=== PATIENT | male | born 1930 | race Two or more races ===

== ENCOUNTER 2016-04-15 15:35 | Inpatient (IN) | payer MEDICARE, OTHER ==
[2016-04-15] VITALS (15 sets, daily range): BP systolic 126–181; BP diastolic 50–82
[~2016-04-15] VITALS: Ht 177.8 cm; Wt 67.1 kg
[2016-04-15] MEDS ORDERED: NITROGLYCERIN 0.4 MG/TAB BOTTLE ONE (15:50)
[2016-04-15] MEDS ORDERED: ASPIRIN 325 MG TABLET ONE (15:50)
[2016-04-15] MEDS ORDERED: FUROSEMIDE 40 MG/4 ML VIAL ONE (15:50)
[2016-04-15] MEDS ORDERED: NTG 50 MG/D5W250 ML BOTTL 250 ML IV ONE ×2 (15:51→16:00)
[2016-04-15] MEDS ORDERED: IV SET PRIMARY PUMP SET 1 EA INFUS.SET MC ONE ×3 (15:51→19:02)
[2016-04-15] MEDS ORDERED: NITROGLYCERIN 0.4 MG/TAB BOTTLE SL ONE (16:00)
[2016-04-15] MEDS ORDERED: FUROSEMIDE 40 MG/4 ML VIAL IV ONE (16:00)
[2016-04-15] MEDS ORDERED: ASPIRIN 325 MG TABLET PO ONE (16:00)
[2016-04-15 16:23] LABS: BASOPHILS # (AUTO) 0.1 /CMM (0.0-0.2); BASOPHILS % (AUTO) 0.6 % (0.0-2.0); DIFF TOTAL % 100 %; EOSINOPHILS # (AUTO) 0.2 /CMM (0.0-0.7); EOSINOPHILS % (AUTO) 1.4 % (0.0-6.0); HEMATOCRIT 33 % (39-51); HEMOGLOBIN 10.7 g/dL (13.5-17.5); LYMPHOCYTES # (AUTO) 0.7 /CMM (0.8-4.8); LYMPHOCYTES % (AUTO) 4.5 % (20.0-44.0); MEAN CORPUSCULAR HEMOGLOBIN 28 PG (26.0-33.0); MEAN CORPUSCULAR HGB CONC 33 g/dl (31.0-36.0); MEAN CORPUSCULAR VOLUME 84 fL (80-96); MONOCYTES % (AUTO) 6.7 % (2.0-12.0); NEUTROPHILS # (AUTO) 13.1 /CMM (1.8-8.9); NEUTROPHILS % (AUTO) 86.8 % (43.0-81.0); PLATELET COUNT (AUTO) 258 /CMM (150-450); RED BLOOD CELL COUNT(AUTO) 3.89 MIL/uL (4.5-6.0); WHITE BLOOD COUNT (AUTO) 15.1 K/uL (4.3-11.0)
[2016-04-15 16:43] LABS: ANION GAP 15 (5-14); CALCIUM, SERUM 8.7 mg/dL (8.5-10.1); CARBON DIOXIDE 23 mmol/L (21-32); CHLORIDE 106 mmol/L (98-107); CREATININE 2.4 mg/dL (0.6-1.3); GLUCOSE 245 mg/dL (74-106); POTASSIUM 5.9 mmol/L (3.5-5.1); SODIUM SERUM 138 mmol/L (136-145); UREA NITROGEN, BLOOD 38 mg/dL (7-18)
[2016-04-15 16:45] LABS: INR 1.08 (0.87-1.13); PROTHROMBIN TIME 11.3 SECS (9.5-12.7)
[2016-04-15 16:50] LABS: TROPONIN I < 0.017 ng/mL (0.00-0.056)
[2016-04-15 16:55] LABS: ALANINE AMINOTRANSFERASE 21 U/L (12-78); ALBUMIN 3.5 g/dL (3.4-5.0); ASPARTATE AMINOTRANSFERASE 24 U/L (15-37); BILIRUBIN,DIRECT 0.5 mg/dL (0.0-0.2); BILIRUBIN,TOTAL 1.4 mg/dL (0.2-1.0); INDIRECT BILIRUBIN 0.9 mg/dL (0.0-1.1); TOTAL PROTEIN, SERUM 7.7 g/dL (6.4-8.2)
[2016-04-15 17:17] LABS: ABG BASE EXCESS -5.3 mmol/L; ABG HCO3 20.2 mmol/L; ABG PCO2 39.1 mmHg (35.0-45.0); ABG PH 7.331 (7.350-7.450); ABG PO2 77.5 mmHg (75.0-100.0); ALLEN TEST Pass; AaDO2 162.7 mmHg; O2Hb 93.6 % (94.0-97.0)
[2016-04-15] MEDS: CEFEPIME 1 GM in IV D5W 50 ML IV ONE ×2 (17:29→17:30)
[2016-04-15] MEDS ORDERED: VANCOMYCIN 1 GM in IV D5W 250 ML IV ONE (17:30)
[2016-04-15] MEDS ORDERED: Z GUARD REMEDY 2 OZ OINT TP PRN (18:30)
[2016-04-15] MEDS ORDERED: ALBUTEROL FS 2.5 MG/0.5 ML VIAL.NEB NEB PRN (18:30)
[2016-04-15] MEDS ORDERED: IPRATROPIUM NEB FS 0.5 MG/2.5 ML AMPUL.NEB NEB PRN (18:30)
[2016-04-15] MEDS ORDERED: ONDANSETRON HCL/PF 4 MG/2 ML VIAL IVP PRN (18:30)
[2016-04-15] MEDS ORDERED: MORPHINE SULFATE INJ 2 MG/ML DISP.SYRIN IV PRN (18:30)
[2016-04-15] MEDS ORDERED: ACETAMINOPHEN 325 MG TABLET PO PRN (18:30)
[2016-04-15] MEDS ORDERED: IV 1/2NS 1000 ML 1,000 ML IV PRN (18:30)
[2016-04-15] MEDS ORDERED: FEE PK DOSING 1 MIN EA MC ONE (18:47)
[2016-04-15] MEDS ORDERED: SODIUM POLYSTYRENE SULFONATE 15 G/60 ML BOTTLE PO ONE (19:00)
[2016-04-15] MEDS: ENOXAPARIN SODIUM 30 MG/0.3 ML DISP.SYRIN SQ SCH (19:14)
[2016-04-16] VITALS (76 sets, daily range): BP systolic 122–199; BP diastolic 42–75
[2016-04-16] MEDS: PIPERACILLIN /TAZOBACTAM 2.25 G in IV D5W 50 ML IV SCH ×4 (00:32→17:39)
[2016-04-16] MEDS ORDERED: NTG 50 MG/D5W250 ML BOTTL 250 ML IV PRN (08:00)
[2016-04-16 08:29] LABS: BASOPHILS % (AUTO) 0.4 % (0.0-2.0); DIFF TOTAL % 100 %; EOSINOPHILS # (AUTO) 0.2 /CMM (0.0-0.7); HEMATOCRIT 30 % (39-51); HEMOGLOBIN 9.7 g/dL (13.5-17.5); LYMPHOCYTES # (AUTO) 0.8 /CMM (0.8-4.8); LYMPHOCYTES % (AUTO) 8.4 % (20.0-44.0); MEAN CORPUSCULAR HEMOGLOBIN 27 PG (26.0-33.0); MEAN CORPUSCULAR HGB CONC 33 g/dl (31.0-36.0); MEAN CORPUSCULAR VOLUME 84 fL (80-96); MONOCYTES # (AUTO) 0.8 /CMM (0.1-1.30); MONOCYTES % (AUTO) 8.2 % (2.0-12.0); NEUTROPHILS # (AUTO) 7.6 /CMM (1.8-8.9); PLATELET COUNT (AUTO) 197 /CMM (150-450); RED BLOOD CELL COUNT(AUTO) 3.53 MIL/uL (4.5-6.0); WHITE BLOOD COUNT (AUTO) 9.3 K/uL (4.3-11.0)
[2016-04-16 08:55] LABS: ALBUMIN 3.2 g/dL (3.4-5.0); BILIRUBIN,TOTAL 1.5 mg/dL (0.2-1.0); CALCIUM, SERUM 8.4 mg/dL (8.5-10.1); CREATININE 2.4 mg/dL (0.6-1.3); PHOSPHORUS 4.1 mg/dL (2.5-4.9); POTASSIUM 4.6 mmol/L (3.5-5.1)
[2016-04-16 08:56] LABS: THYROID STIMULATING HORMONE 0.748 uIU/mL (0.358-3.74)
[2016-04-16] MEDS ORDERED: PANTOPRAZOLE 40 MG VIAL IV SCH (09:00)
[2016-04-16] MEDS ORDERED: BUMETANIDE INJ 8 MG in IV NS 0.9% 48 ML IV ONE (11:00)
[2016-04-16] MEDS ORDERED: DEXTROSE 50%-WATER 50 ML DISP.SYRIN IV PRN (15:00)
[2016-04-16] MEDS ORDERED: HYDR100T27 PO (16:32)
[2016-04-16] MEDS ORDERED: CLON1PAT2 TD (16:32)
[2016-04-16] MEDS ORDERED: METO100T3 PO (16:32)
[2016-04-16] MEDS ORDERED: AMLO1TAB65 PO (16:32)
[2016-04-16] MEDS ORDERED: SITA1TAB2 PO (16:32)
[2016-04-16] MEDS ORDERED: ESOM40CA PO (16:32)
[2016-04-16] MEDS ORDERED: INSU100V7 SQ (16:32)
[2016-04-16] MEDS ORDERED: FLUT1DIS5 INH (16:32)
[2016-04-16] MEDS ORDERED: RIVA1PAT3 TP (16:32)
[2016-04-16] MEDS ORDERED: RIVA1PAT2 TD (16:32)
[2016-04-16] MEDS: LACTOBACILLUS RHAMNOSUS GG 1 EACH CAP.SPRINK PO SCH (17:38)
[2016-04-16] MEDS: BLOOD SUGAR DIAGNOSTIC 1 EACH STRIP IN SCH ×2 (17:39→22:00)
[2016-04-16] MEDS: hydrALAZINE HCL 25 MG TABLET PO SCH (17:39)
[2016-04-16] MEDS: INSULIN REGULAR, HUMAN 100 UNIT/ML 3 ML VIAL SQ PRN ×2 (17:43→23:32)
[2016-04-16] MEDS: ENOXAPARIN SODIUM 30 MG/0.3 ML DISP.SYRIN SQ SCH (21:29)
[2016-04-17] VITALS (27 sets, daily range): BP systolic 101–158; BP diastolic 40–89
[2016-04-17] MEDS: PIPERACILLIN /TAZOBACTAM 2.25 G in IV D5W 50 ML IV SCH ×3 (00:34→13:28)
[2016-04-17] MEDS: hydrALAZINE HCL 25 MG TABLET PO SCH ×2 (00:35→06:19)
[2016-04-17 04:47] LABS: BASOPHILS # (AUTO) 0.1 /CMM (0.0-0.2); BASOPHILS % (AUTO) 0.7 % (0.0-2.0); DIFF TOTAL % 100 %; EOSINOPHILS # (AUTO) 0.5 /CMM (0.0-0.7); EOSINOPHILS % (AUTO) 6.6 % (0.0-6.0); HEMATOCRIT 32 % (39-51); HEMOGLOBIN 10.5 g/dL (13.5-17.5); LYMPHOCYTES # (AUTO) 0.9 /CMM (0.8-4.8); LYMPHOCYTES % (AUTO) 11.8 % (20.0-44.0); MEAN CORPUSCULAR HEMOGLOBIN 27 PG (26.0-33.0); MEAN CORPUSCULAR HGB CONC 33 g/dl (31.0-36.0); MEAN CORPUSCULAR VOLUME 83 fL (80-96); MONOCYTES # (AUTO) 0.7 /CMM (0.1-1.30); MONOCYTES % (AUTO) 9.8 % (2.0-12.0); NEUTROPHILS # (AUTO) 5.4 /CMM (1.8-8.9); NEUTROPHILS % (AUTO) 71.1 % (43.0-81.0); PLATELET COUNT (AUTO) 195 /CMM (150-450); RED BLOOD CELL COUNT(AUTO) 3.87 MIL/uL (4.5-6.0); WHITE BLOOD COUNT (AUTO) 7.6 K/uL (4.3-11.0)
[2016-04-17 04:54] LABS: ALANINE AMINOTRANSFERASE 16 U/L (12-78); ALBUMIN 3.1 g/dL (3.4-5.0); ANION GAP 15 (5-14); ASPARTATE AMINOTRANSFERASE 11 U/L (15-37); BILIRUBIN,TOTAL 1.1 mg/dL (0.2-1.0); CALCIUM, SERUM 8.5 mg/dL (8.5-10.1); CARBON DIOXIDE 28 mmol/L (21-32); CHLORIDE 102 mmol/L (98-107); CREATININE 2.6 mg/dL (0.6-1.3); GLUCOSE 185 mg/dL (74-106); PHOSPHORUS 4.7 mg/dL (2.5-4.9); SODIUM SERUM 141 mmol/L (136-145); UREA NITROGEN, BLOOD 34 mg/dL (7-18)
[2016-04-17 04:57] LABS: TROPONIN I < 0.017 ng/mL (0.00-0.056)
[2016-04-17] MEDS ORDERED: VANCOMYCIN 1 GM in IV D5W 250 ML IV SCH (06:00)
[2016-04-17] MEDS: BLOOD SUGAR DIAGNOSTIC 1 EACH STRIP IN SCH ×4 (08:07→21:06)
[2016-04-17] MEDS: INSULIN REGULAR, HUMAN 100 UNIT/ML 3 ML VIAL SQ PRN ×4 (08:07→21:18)
[2016-04-17] MEDS ORDERED: hydrALAZINE HCL 50 MG TABLET PO SCH (08:11)
[2016-04-17] MEDS: NITROGLYCERIN 30 GM TUBE TP SCH ×2 (09:13→21:00)
[2016-04-17] MEDS: LACTOBACILLUS RHAMNOSUS GG 1 EACH CAP.SPRINK PO SCH ×2 (09:13→18:20)
[2016-04-17] MEDS: METOLAZONE 2.5 MG TABLET PO SCH (11:02)
[2016-04-17] MEDS: Magnesium 1GM/D5W 100ML PREMIX 100 ML IV SCH ×2 (12:56→13:28)
[2016-04-17] MEDS: hydrALAZINE HCL 50 MG TABLET PO SCH ×2 (14:25→18:20)
[2016-04-17] MEDS: LEVOFLOXACIN (250MG) 250 MG TABLET PO SCH (18:20)
[2016-04-17] MEDS: ENOXAPARIN SODIUM 30 MG/0.3 ML DISP.SYRIN SQ SCH (21:19)
[2016-04-18] VITALS (7 sets, daily range): BP systolic 117–137; BP diastolic 57–80
[2016-04-18] MEDS: BLOOD SUGAR DIAGNOSTIC 1 EACH STRIP IN SCH ×4 (07:08→21:40)
[2016-04-18 07:28] LABS: CALCIUM, SERUM 8.1 mg/dL (8.5-10.1); CREATININE 3.7 mg/dL (0.6-1.3); POTASSIUM 4.3 mmol/L (3.5-5.1)
[2016-04-18] MEDS: LACTOBACILLUS RHAMNOSUS GG 1 EACH CAP.SPRINK PO SCH ×2 (08:29→17:26)
[2016-04-18] MEDS: METOLAZONE 2.5 MG TABLET PO SCH (08:29)
[2016-04-18] MEDS: hydrALAZINE HCL 50 MG TABLET PO SCH ×3 (08:29→17:49)
[2016-04-18] MEDS: NITROGLYCERIN 30 GM TUBE TP SCH ×2 (08:39→20:54)
[2016-04-18] MEDS: INSULIN REGULAR, HUMAN 100 UNIT/ML 3 ML VIAL SQ PRN ×3 (12:35→21:43)
[2016-04-18] MEDS: LEVOFLOXACIN (250MG) 250 MG TABLET PO SCH (17:26)
[2016-04-18] MEDS: ENOXAPARIN SODIUM 30 MG/0.3 ML DISP.SYRIN SQ SCH (20:55)
[2016-04-19] MEDS ORDERED: SECONDARY IV SET 1 EA INFUS.SET MC ONE (00:02)
[2016-04-19] MEDS: BLOOD SUGAR DIAGNOSTIC 1 EACH STRIP IN SCH ×2 (06:26→12:18)
[2016-04-19] MEDS: INSULIN REGULAR, HUMAN 100 UNIT/ML 3 ML VIAL SQ PRN ×2 (06:31→12:19)
[2016-04-19 08:00] VITALS: BP 136/59
[2016-04-19] MEDS: LACTOBACILLUS RHAMNOSUS GG 1 EACH CAP.SPRINK PO SCH (08:57)
[2016-04-19] MEDS: hydrALAZINE HCL 50 MG TABLET PO SCH ×2 (08:58→12:47)
[2016-04-19] MEDS: METOLAZONE 2.5 MG TABLET PO SCH (08:58)
[2016-04-19] MEDS ORDERED: BUMETANIDE INJ 0.25 MG/ML VIAL IV SCH (09:00)
[2016-04-19 09:05] LABS: BASOPHILS % (AUTO) 0.6 % (0.0-2.0); DIFF TOTAL % 100 %; EOSINOPHILS # (AUTO) 0.5 /CMM (0.0-0.7); EOSINOPHILS % (AUTO) 6.7 % (0.0-6.0); HEMATOCRIT 31 % (39-51); HEMOGLOBIN 10.1 g/dL (13.5-17.5); LYMPHOCYTES # (AUTO) 1.1 /CMM (0.8-4.8); LYMPHOCYTES % (AUTO) 15.4 % (20.0-44.0); MEAN CORPUSCULAR HEMOGLOBIN 27 PG (26.0-33.0); MEAN CORPUSCULAR HGB CONC 33 g/dl (31.0-36.0); MEAN CORPUSCULAR VOLUME 83 fL (80-96); MONOCYTES # (AUTO) 0.9 /CMM (0.1-1.30); MONOCYTES % (AUTO) 11.9 % (2.0-12.0); NEUTROPHILS # (AUTO) 4.8 /CMM (1.8-8.9); NEUTROPHILS % (AUTO) 65.4 % (43.0-81.0); PLATELET COUNT (AUTO) 196 /CMM (150-450); RED BLOOD CELL COUNT(AUTO) 3.73 MIL/uL (4.5-6.0); WHITE BLOOD COUNT (AUTO) 7.3 K/uL (4.3-11.0)
[2016-04-19] MEDS: NITROGLYCERIN 30 GM TUBE TP SCH (09:06)
[2016-04-19 09:17] LABS: CALCIUM, SERUM 8.3 mg/dL (8.5-10.1); CREATININE 3.8 mg/dL (0.6-1.3); PHOSPHORUS 5.3 mg/dL (2.5-4.9); POTASSIUM 4.6 mmol/L (3.5-5.1)
[2016-04-19 12:47] VITALS: BP 142/56
== END 2016-04-19 14:30 | disposition home or self-care (01) | DRG 291 ==
LOC: ER 15:36 → ICU 17:38 → TELE 04-17 11:30 → MED 04-18 11:11
DX: I13.0 Hypertensive heart and chronic kidney disease with heart failure and stage 1 through stage 4 chronic kidney disease, or unspecified chronic kidney disease (principal); J96.01 Acute respiratory failure with hypoxia; I50.33 Acute on chronic diastolic (congestive) heart failure; N17.0 Acute kidney failure with tubular necrosis; J15.9 Unspecified bacterial pneumonia; J44.0 Chronic obstructive pulmonary disease with (acute) lower respiratory infection; I16.1 Hypertensive emergency; E78.5 Hyperlipidemia, unspecified; E87.5 Hyperkalemia; I35.0 Nonrheumatic aortic (valve) stenosis; D63.8 Anemia in other chronic diseases classified elsewhere; E11.22 Type 2 diabetes mellitus with diabetic chronic kidney disease; I25.10 Atherosclerotic heart disease of native coronary artery without angina pectoris; J98.4 Other disorders of lung; Z99.2 Dependence on renal dialysis
CPT/HCPCS: 36415; 36600; 71010-TC; 80048-TC; 80053-TC; 80061-TC; 80076-TC; 82306; 82728-TC; 82962-TC; 83540-TC; 83605-TC; 83735-TC; 83880; 84100-TC; 84439-TC; 84443-TC; 84484-TC; 85025-TC; 85730-TC; 87040-TC; 87081-TC; 93307-TC; 94799-TC; 97001-TC; A4216; A4349; A4606; C9113; J0692; J1650; J1815; J1940; J2270; J2543; J3370; J3475; J3490; J7060; Z7610

== ENCOUNTER 2016-08-14 18:51 | Inpatient (IN) | payer MEDICARE, OTHER ==
[~2016-08-14] VITALS: Ht 172.7 cm; Wt 63.5 kg
[~2016-08-14 18:51] MED LIST: AMLO1TAB65 PO; CLON1PAT2 TD; ESOM40CA PO; FLUT1DIS5 INH; HYDR100T27 PO; INSU100V7 SQ; METO100T3 PO; RIVA1PAT2 TD; RIVA1PAT3 TP; SITA1TAB2 PO
--- NOTE | 2016-08-14 18:57 | NUR ---
PT [id number] FROM HOME: SOB, HYPOXIA. BS IN FIELD 192. PLACED ON MONITOR. VSS. AWAITING MD ORDER
--- NOTE | 2016-08-14 19:00 | NUR ---
RT WRIST #20 IV ACCESS. RIGGING SLINGER . BLOOD SAMPLE COLLECTED SENT TO LAB
[2016-08-14] MEDS ORDERED: CLON1PAT2 TD (19:20)
[2016-08-14] MEDS ORDERED: PRAM0.253 PO (19:20)
[2016-08-14] MEDS ORDERED: METO5TAB7 PO (19:20)
[2016-08-14] MEDS ORDERED: ALLO100T PO (19:20)
[2016-08-14] MEDS ORDERED: ASPI81TA2 PO (19:20)
[2016-08-14] MEDS ORDERED: NIFE20CA PO (19:20)
[2016-08-14] MEDS ORDERED: ERGO50003 PO (19:20)
[2016-08-14] MEDS ORDERED: METO5TAB87 PO (19:20)
[2016-08-14] MEDS ORDERED: AMLO10TA2 PO (19:20)
[2016-08-14] MEDS ORDERED: CYAN10006 IM (19:20)
[2016-08-14] MEDS ORDERED: FOLI1TAB16 PO (19:20)
[2016-08-14] MEDS ORDERED: LINA145C PO (19:20)
[2016-08-14] MEDS ORDERED: BUME1TAB4 PO (19:20)
--- NOTE | 2016-08-14 19:24 | NUR ---
GAVE REPORT TO DANDRE FOR LARISSA
[2016-08-14 19:29] LABS: BASOPHILS # (AUTO) 0.1 /CMM (0.0-0.2); BASOPHILS % (AUTO) 0.9 % (0.0-2.0); EOSINOPHILS # (AUTO) 0.5 /CMM (0.0-0.7); EOSINOPHILS % (AUTO) 4.6 % (0.0-6.0); HEMATOCRIT 33 % (39-51); HEMOGLOBIN 10.8 g/dL (13.5-17.5); LYMPHOCYTES # (AUTO) 1.3 /CMM (0.8-4.8); LYMPHOCYTES % (AUTO) 12.4 % (20.0-44.0); MEAN CORPUSCULAR HEMOGLOBIN 27 PG (26.0-33.0); MEAN CORPUSCULAR HGB CONC 33 g/dl (31.0-36.0); MEAN CORPUSCULAR VOLUME 83 fL (80-96); MONOCYTES % (AUTO) 9.6 % (2.0-12.0); NEUTROPHILS # (AUTO) 7.8 /CMM (1.8-8.9); NEUTROPHILS % (AUTO) 72.5 % (43.0-81.0); PLATELET COUNT (AUTO) 226 /CMM (150-450); RDW COEFFICIENT OF VARIATION 16.4 (11.5-15.0); RED BLOOD CELL COUNT(AUTO) 3.94 MIL/uL (4.5-6.0); WHITE BLOOD COUNT (AUTO) 10.7 K/uL (4.3-11.0)
--- NOTE | 2016-08-14 19:32 | NUR ---
TRANSFORMER SHOP SUPERVISOR AT BEDSIDE
[2016-08-14 19:40] LABS: CALCIUM, SERUM 8.5 mg/dL (8.5-10.1); CREATININE 2.8 mg/dL (0.6-1.3); POTASSIUM 4.5 mmol/L (3.5-5.1)
[2016-08-14 19:44] LABS: INR 1.07 (0.87-1.13); PROTHROMBIN TIME 11.1 SECS (9.5-12.7)
[2016-08-14] MEDS ORDERED: PROPOFOL 100 ML IV ONE (19:44)
[2016-08-14] MEDS ORDERED: IV SET PRIMARY PUMP SET 1 EA INFUS.SET MC ONE (19:44)
[2016-08-14 19:46] LABS: ALBUMIN 3.6 g/dL (3.4-5.0); BILIRUBIN,DIRECT 0.1 mg/dL (0.0-0.2); BILIRUBIN,TOTAL 0.6 mg/dL (0.2-1.0); TOTAL PROTEIN, SERUM 7.9 g/dL (6.4-8.2)
[2016-08-14 19:48] LABS: TROPONIN I 0.02 ng/mL (0.00-0.056)
--- NOTE | 2016-08-14 21:23 | NUR ---
CALLED NURSING SUP. FOR TELE BED
[2016-08-14] MEDS ORDERED: MAGNESIUM HYDROXIDE 30 ML UDC PO PRN (22:00)
[2016-08-14] MEDS ORDERED: HYDROCODONE/APAP 5/325MG 1 EACH TABLET PO PRN (22:00)
[2016-08-14] MEDS ORDERED: ZOLPIDEM TARTRATE 5 MG TABLET PO PRN (22:00)
[2016-08-14] MEDS ORDERED: ONDANSETRON HCL/PF 4 MG/2 ML VIAL IVP PRN (22:00)
[2016-08-14] MEDS ORDERED: ACETAMINOPHEN 325 MG TABLET PO PRN (22:00)
[2016-08-14] MEDS ORDERED: MAG HYDROX/AL HYDROX/SIMETH 30 ML UDC PO PRN (22:00)
--- NOTE | 2016-08-14 22:00 | NUR ---
PT TAKEN OFF NRB MASK AND PLACED ON NC AT 4L. PT SAT 90-91%. PT IS MOUTH BREATHING. PT PLACED ON SIMPLE MASK AT 8L AND IS SATURATING AT 97%.
--- NOTE | 2016-08-14 22:01 | NUR ---
CALLING REPOR TO TELE NURSE.
[2016-08-14 22:20] VITALS: BP 165/82
--- NOTE | 2016-08-14 22:20 | NUR ---
SECURITY SOFTWARE ENGINEER NOTES: RECEIVED PATIENT VIA KACIE, AODestinee AZERI SPEAKING. , ON O2 AT 8 LPM VIA SIMPLE FACE MASK, APPEARS TO HAVE SOB, BREATHING AT RATE OF 28-32 PER MINUTES, WHEEZING AUSCULTATED UPON EXPIRATION, ALSO NOTED RHONCHI OVER LUNG LOPEZ. PATIENT USES ACCESSORY MUSCLES IN BREATHING, MAINTAINED HOB ELEVATED. CALLED RT FOR ABG TO BE DONE. VS TAKEN FF: BP: 165/82, 65, RR: 32, TEMP: 98.5, O2 SAT: 96%. PROVIDED FOR COMFORT AND SAFETY. WILL CONT TO MONITOR.
--- NOTE | 2016-08-14 22:29 | NUR ---
RN NOTES: ABG DRAWN BY RT ELEANOR.
[2016-08-14 22:34] LABS: ABG PH 7.147 (7.350-7.450); ABG PO2 81.7 mmHg (75.0-100.0); AaDO2 219.7 mmHg; COHb 0.9 % (0.5-1.5); MetHb 0.9 % (0.0-1.5); O2Hb 91.3 % (94.0-97.0); SITE, ABG Right Radial; VENT MODE, BG SM 6L
--- NOTE | 2016-08-14 22:40 | NUR ---
RN NOTES: ABG RESULT: PH: 7.147, PCO2: 49.0; HCO3: 16.6. DR DENNIS MADE AWARE. PER MD, TRANSFER PATIENT TO ICU, START BIPAP (10/08); CALL [facility]PHRO FOR STAT DIALYSIS, THEN REPEEAT ABG 1 HR AFTER BIPAP STARTED. ORDERS CARRIED OUT.
--- NOTE | 2016-08-14 23:07 | NUR ---
RN NOTES: PATIENT WAS TRANSFERRED TO ICU FLOOR RM 250 VIA ACLS PROTOCOL. BEDSIDE REPORT GIVEN TO ED, RN.
[2016-08-14] MEDS ORDERED: PANTOPRAZOLE 40 MG TABLET.DR PO ONE (23:18)
[2016-08-14 23:24] VITALS: BP 179/89
[2016-08-14] MEDS: PANTOPRAZOLE 40 MG TABLET.DR PO SCH (23:24)
[2016-08-14 23:30] VITALS: BP 180/64
--- NOTE | 2016-08-14 23:30 | NUR ---
RT PT PLACED ON BIPAP PER MD ORDERS WITH NOTED SETTING. BIPAP CONNECTED TO RED OUTLET. MT GONZALEZ AT HOB. PT TOLERATING SETTING WELL. BREATHS SOUND BILATERAL DIMINISHED WITH CRACKLES. WILL CONTINUE TO MONITOR. Addendum: 08/14/16 at 2332 by KRISHNA TOWNSEND RT Amended: Links added.
[2016-08-14] MEDS: hydrALAZINE HCL IV 20 MG VIAL IV PRN (23:41)
[2016-08-14] MEDS ORDERED: PRAMIPEXOLE DI-HCL 0.25 MG TABLET ONE (23:44)
[2016-08-14] MEDS: PRAMIPEXOLE DI-HCL 0.25 MG TABLET PO SCH (23:50)
[2016-08-15] VITALS (30 sets, daily range): BP systolic 100–165; BP diastolic 30–100
[2016-08-15] MEDS ORDERED: BUMETANIDE INJ 2 MG in IV NS 0.9% 32 ML IV ONE (00:30)
[2016-08-15 01:13] LABS: ABG BASE EXCESS -7.8 mmol/L; ABG OXYGEN SATURATION 97.6 % (92.0-98.5); ABG PCO2 31.7 mmHg (35.0-45.0); ABG PH 7.343 (7.350-7.450); AaDO2 211.8 mmHg; COHb 0.7 % (0.5-1.5); MetHb 0.6 % (0.0-1.5); O2Hb 96.3 % (94.0-97.0); PEEP,BG 5 cm H2O; SITE, ABG Right Radial; VENT MODE, BG ST 15/5 R12 50%
[2016-08-15] MEDS ORDERED: IV NS 0.9% 50 ML IV ONE (01:46)
[2016-08-15] MEDS ORDERED: BUMETANIDE INJ 0.25 MG/ML VIAL ONE (01:46)
[2016-08-15] MEDS ORDERED: IV SET PRIMARY PUMP SET 1 EA INFUS.SET MC ONE (01:47)
[2016-08-15] MEDS ORDERED: hydrALAZINE HCL IV 20 MG VIAL ONE (04:19)
[2016-08-15] MEDS: hydrALAZINE HCL IV 20 MG VIAL IV PRN (04:24)
--- NOTE | 2016-08-15 05:20 | NUR ---
CRIMINAL JUSTICE PROGRAM DIRECTOR PT WAS ADMITTED FROM ER WITH DIAGNOSIS RESPIRATORY FAILURE, CHF EXACERBATION, ESRD. PT IS AWAKE, ALERT, BUT ANXIOUS, UNCOOPERATIVE. GREEK SPEAKING ONLY. SPEECH IS CLEAR. HENRIK. MOVES ALL EXTREMITIES, LEGS ARE WEAK. LUNGS ARE CONGESTED. PT IS HYPERTENSIVE. SCOPE-SR WITH PVC'S. PT IS ON BIPAP- TOLERATES WELL. NEPHROLOGY /D-R CECILIA/ WAS CALLED FOR EMERGENT DIALYSIS. HD DONE VIA LEFT AC AV SHUNT- REMOVED 2800 ML OF FLUID. F/C WAS INSERTED PER D-R DERDERYAN ORDER. PT WAS GIVEN BUMEX 2 MG IV. REMAINS ANURIC PT HAS ONLY ONE IV ACCESS. REFUSED TO INSERT ANOTHER LINE. PT REMAINS NONCOMPLIANT, UNCOOPERATIVE, AGITATED AT TIMES. SOFT WRIST RESTRAINTS ON. WILL CONTINUE CLOSE MONITORING.
[2016-08-15 07:54] LABS: BASOPHILS % (AUTO) 0.2 % (0.0-2.0); EOSINOPHILS % (AUTO) 0.1 % (0.0-6.0); HEMATOCRIT 35 % (39-51); HEMOGLOBIN 11.4 g/dL (13.5-17.5); LYMPHOCYTES # (AUTO) 0.9 /CMM (0.8-4.8); LYMPHOCYTES % (AUTO) 7.7 % (20.0-44.0); MEAN CORPUSCULAR HEMOGLOBIN 27 PG (26.0-33.0); MEAN CORPUSCULAR HGB CONC 33 g/dl (31.0-36.0); MEAN CORPUSCULAR VOLUME 83 fL (80-96); MONOCYTES # (AUTO) 1.1 /CMM (0.1-1.30); MONOCYTES % (AUTO) 9.1 % (2.0-12.0); NEUTROPHILS # (AUTO) 9.8 /CMM (1.8-8.9); NEUTROPHILS % (AUTO) 82.9 % (43.0-81.0); PLATELET COUNT (AUTO) 188 /CMM (150-450); RDW COEFFICIENT OF VARIATION 17.1 (11.5-15.0); RED BLOOD CELL COUNT(AUTO) 4.17 MIL/uL (4.5-6.0); WHITE BLOOD COUNT (AUTO) 11.9 K/uL (4.3-11.0)
--- NOTE | 2016-08-15 08:00 | NUR ---
ICU/RN - Initial Notes Received pt in bed, on Bipap with settings as ordered, tolerating well. Pt alert and oriented x2-3, Danish and Kenyan speaking. Denies pain or discomfort. Release of restraint provided as pt is cooperative at this time. On tele reading SR 75 with PVC's. Friend catheter intact draining urine to gravity. CORY AV fistula patent and intact, positive bruit/thrill. IV patent and intact, saline locked. Dorcas care rendered, pt kept clean and dry. Repositioned for comfort. Will continue to monitor pt closely.
[2016-08-15] MEDS ORDERED: Z GUARD REMEDY 2 OZ OINT TP PRN (08:30)
[2016-08-15] MEDS ORDERED: Medication Not On Formulary EA (Esomeprazole Mag Trihydrate (Nexium) 40 MG) PO SCH (09:00)
[2016-08-15] MEDS ORDERED: DEXTROSE 50%-WATER 50 ML DISP.SYRIN IV PRN (09:00)
--- NOTE | 2016-08-15 09:00 | NUR ---
ICU/RN - Notes Pt seen and examined by Dr Ishmael Wheatley, and Reynaldo Ashraf NP. Updates given. Pt currently undergoing Hemodialysis, vital signs stable.
[2016-08-15 09:15] LABS: ALBUMIN 3.6 g/dL (3.4-5.0); BILIRUBIN,TOTAL 0.9 mg/dL (0.2-1.0); CALCIUM, SERUM 8.7 mg/dL (8.5-10.1); CREATININE 2.9 mg/dL (0.6-1.3); MAGNESIUM 1.9 mg/dL (1.8-2.4); POTASSIUM 5.3 mmol/L (3.5-5.1); TOTAL PROTEIN, SERUM 8.3 g/dL (6.4-8.2)
[2016-08-15] MEDS ORDERED: IV NS 0.9% 1,000 ML ONE (09:48)
--- NOTE | 2016-08-15 10:40 | NUR ---
ICU/RN - Notes Pt seen and evaluated by Dr Mitchell.
--- NOTE | 2016-08-15 10:45 | NUR ---
ICU/RN - Notes Family at bedside, updated on plan of care.
--- NOTE | 2016-08-15 10:59 | NUR ---
RT BIPAP REMOVED AND ON STAND BY AT BEDSIDE PER DR RICHARDS. PATIENT PLACED ON 4LPM N/C. NO DISTRESS NOTED AT THIS TIME. RN AYANA AWARE. WILL CONTINUE TO MONITOR T/O SHIFT.
[2016-08-15] MEDS: AMLODIPINE BESYLATE 10 MG TABLET PO SCH (11:21)
[2016-08-15] MEDS: hydrALAZINE HCL 50 MG TABLET PO SCH ×2 (11:21→12:11)
[2016-08-15] MEDS: ASPIRIN 81 MG TAB.CHEW PO SCH (11:21)
[2016-08-15] MEDS: FOLIC ACID 1 MG TABLET PO SCH (11:21)
[2016-08-15] MEDS: METOLAZONE 2.5 MG TABLET PO SCH (11:21)
[2016-08-15] MEDS: PANTOPRAZOLE 40 MG TABLET.DR PO SCH (11:21)
[2016-08-15] MEDS: ALLOPURINOL 100 MG TABLET PO SCH (11:22)
[2016-08-15] MEDS: HEPARIN SODIUM, PORCINE 5000 UNITS/1 ML VIAL SQ SCH ×2 (11:22→21:42)
[2016-08-15] MEDS ORDERED: PROC10TA PO (11:47)
[2016-08-15] MEDS ORDERED: SIMV20TA6 PO (11:47)
[2016-08-15] MEDS ORDERED: SITA1TAB2 PO (11:47)
[2016-08-15] MEDS: METOCLOPRAMIDE HCL 10 MG TABLET PO SCH ×2 (12:21→17:10)
[2016-08-15] MEDS: BLOOD SUGAR DIAGNOSTIC 1 EACH STRIP IN SCH ×3 (12:21→21:41)
[2016-08-15] MEDS: INSULIN REGULAR, HUMAN 100 UNIT/ML 3 ML VIAL SQ PRN ×3 (12:22→21:44)
[2016-08-15] MEDS ORDERED: CYANOCOBALAMIN 1,000 MCG/ML VIAL IM SCH (12:22)
[2016-08-15] MEDS ORDERED: ALBUTEROL HALF STRENGTH 1.25 MG/3 ML VIAL.NEB NEB SCH ×2 (13:00→19:30)
[2016-08-15] MEDS: IPRATROPIUM NEB FS 0.5 MG/2.5 ML AMPUL.NEB NEB SCH ×4 (14:20→23:35)
--- NOTE | 2016-08-15 14:20 | NUR ---
ICU/RN - Notes Pt noted with confusion, attempting to get out of bed. Reorientation provided to pt. Bilateral soft wrist restraints re-applied for safety.
--- NOTE | 2016-08-15 16:00 | NUR ---
ICU/RN - Notes Daughter at bedside, pt calm and cooperative at this time.
[2016-08-15] MEDS: NIFEdipine (10MG) 10 MG CAPSULE PO SCH (17:10)
[2016-08-15] MEDS: PRAMIPEXOLE DI-HCL 0.25 MG TABLET PO SCH (17:10)
[2016-08-15] MEDS: FLUTICASONE/SALMETEROL 1 DISK IH SCH (17:11)
[2016-08-15] MEDS: LINZESS 145 MCG PO SCH (17:24)
[2016-08-15] MEDS: ALBUTEROL HALF STRENGTH 1.25 MG/3 ML VIAL.NEB NEB SCH ×2 (19:41→23:35)
--- NOTE | 2016-08-15 19:43 | NUR ---
agricultural and forestry supervisor. initial assessment, received the pt rest on the bed. awake, alert. lethargic. automotive fuel systems converter showing nsr. iv rt wrist 20g. saline lock. lt upper arm av fistulla. fc patent. hob elevated. turn and reposition q2h. will continue to monitor vitals.
[2016-08-15] MEDS: SIMVASTATIN 20 MG TABLET PO SCH (21:41)
[2016-08-16] VITALS (13 sets, daily range): BP systolic 101–143; BP diastolic 39–76
--- NOTE | 2016-08-16 03:05 | NUR ---
GLASS UNLOADING EQUIPMENT TENDER. AM CARE, ORAL CARE, BED BATH GIVEN. LINEN CHANGED. REMAINING SAME OXYGEN 4L VIA NASAL CANNULA. FC PATENT. AFEBRILE. TURN AND REPOSITION Q2H, WILL CONTINUE TO MONITOR VITALS..
[2016-08-16] MEDS: IPRATROPIUM NEB FS 0.5 MG/2.5 ML AMPUL.NEB NEB SCH ×6 (03:10→23:02)
[2016-08-16] MEDS: ALBUTEROL HALF STRENGTH 1.25 MG/3 ML VIAL.NEB NEB SCH ×6 (03:10→23:02)
[2016-08-16 04:48] LABS: BASOPHILS % (AUTO) 0.2 % (0.0-2.0); EOSINOPHILS # (AUTO) 0.3 /CMM (0.0-0.7); EOSINOPHILS % (AUTO) 2.6 % (0.0-6.0); HEMATOCRIT 31 % (39-51); HEMOGLOBIN 10.3 g/dL (13.5-17.5); LYMPHOCYTES # (AUTO) 1.3 /CMM (0.8-4.8); LYMPHOCYTES % (AUTO) 11.6 % (20.0-44.0); MEAN CORPUSCULAR HEMOGLOBIN 28 PG (26.0-33.0); MEAN CORPUSCULAR HGB CONC 33 g/dl (31.0-36.0); MEAN CORPUSCULAR VOLUME 83 fL (80-96); MONOCYTES # (AUTO) 1.1 /CMM (0.1-1.30); MONOCYTES % (AUTO) 9.9 % (2.0-12.0); NEUTROPHILS # (AUTO) 8.7 /CMM (1.8-8.9); NEUTROPHILS % (AUTO) 75.7 % (43.0-81.0); PLATELET COUNT (AUTO) 160 /CMM (150-450); RED BLOOD CELL COUNT(AUTO) 3.72 MIL/uL (4.5-6.0); WHITE BLOOD COUNT (AUTO) 11.4 K/uL (4.3-11.0)
[2016-08-16 05:08] LABS: ALBUMIN 3.3 g/dL (3.4-5.0); BILIRUBIN,TOTAL 0.7 mg/dL (0.2-1.0); CALCIUM, SERUM 8.1 mg/dL (8.5-10.1); CREATININE 3.6 mg/dL (0.6-1.3); MAGNESIUM 1.9 mg/dL (1.8-2.4); PHOSPHORUS 4.1 mg/dL (2.5-4.9); POTASSIUM 4.5 mmol/L (3.5-5.1); TOTAL PROTEIN, SERUM 7.4 g/dL (6.4-8.2)
[2016-08-16 05:13] LABS: TROPONIN I 0.081 ng/mL (0.00-0.056)
[2016-08-16] MEDS: PANTOPRAZOLE 40 MG TABLET.DR PO SCH (07:47)
[2016-08-16] MEDS: BLOOD SUGAR DIAGNOSTIC 1 EACH STRIP IN SCH ×4 (07:48→21:18)
[2016-08-16] MEDS: INSULIN REGULAR, HUMAN 100 UNIT/ML 3 ML VIAL SQ PRN ×4 (07:49→21:27)
--- NOTE | 2016-08-16 08:23 | NUR ---
DIVE SUPERVISOR Patient transferred to Tele 115-1, report given to Sydnie MAGAÑA. Vital signs stable, no distress, off bipap overnight with stable saturation. Belongings with patient.
--- NOTE | 2016-08-16 08:40 | NUR ---
BUSINESS APPLICATIONS SPECIALIST NOTE RECEIVED PATIENT FROM ICU ALERT ORIENTED ,PLACED ON TELE MONITOR SR 83, ON 3L NA SAT 97% , WITH F\C TO GRAVITY WITH YELLOW COLOR URINE OUT, BED IN LOWEST AND LOCKED POSITION , CALL LIGHT WITHIN REACH, HOSPITAL ORIENTATION DONE , VS TAKEN FED BY STUFF ATE 50% DIET , LT WRIST HL INTACT ,LT UPPER ARM AV FISTULA WITH BRUIT SOUND , WILL CONT TO MONITOR CLOSELY
[2016-08-16] MEDS: FLUTICASONE/SALMETEROL 1 DISK IH SCH ×2 (08:59→17:43)
[2016-08-16] MEDS: NIFEdipine (10MG) 10 MG CAPSULE PO SCH ×2 (08:59→16:41)
[2016-08-16] MEDS: METOCLOPRAMIDE HCL 10 MG TABLET PO SCH ×3 (09:00→16:20)
[2016-08-16] MEDS: HEPARIN SODIUM, PORCINE 5000 UNITS/1 ML VIAL SQ SCH ×2 (09:00→21:22)
[2016-08-16] MEDS: METOLAZONE 2.5 MG TABLET PO SCH (09:00)
[2016-08-16] MEDS: ASPIRIN 81 MG TAB.CHEW PO SCH (09:00)
[2016-08-16] MEDS: AMLODIPINE BESYLATE 10 MG TABLET PO SCH (09:01)
[2016-08-16] MEDS: ALLOPURINOL 100 MG TABLET PO SCH (09:01)
[2016-08-16] MEDS: FOLIC ACID 1 MG TABLET PO SCH (09:01)
[2016-08-16] MEDS: LINZESS 145 MCG PO SCH (09:01)
--- NOTE | 2016-08-16 11:30 | NUR ---
STRATEGIC SOLUTIONS CONSULTANT NOTE SEEN BY YAIR MAGAÑA PRINTING PRESSMAN NOTIFIED THAT PATIENT FEELS BETTER ,NO SOB NOTED, WILL HAVE HD TOMORROW
--- NOTE | 2016-08-16 15:07 | NUR ---
CHIEF STEWARD/STEWARDESS NOTE [facility] APPLIED ORDERED, KEEP CLEAN DRY
[2016-08-16] MEDS: PRAMIPEXOLE DI-HCL 0.25 MG TABLET PO SCH (17:44)
--- NOTE | 2016-08-16 18:17 | NUR ---
PAIRER INSPECTOR CLOSING NOTES: PATIENT IN BED, AOX2, ABLE TO MAKE NEEDS KNOWN VERBALLY. PT ON TELE MONITORING: SINUS 80S- TO 100S. FEEDING OF PEREE DIET BEING TOLERATED WELL BY PATIENT, . DUE MEDS GIVEN WITH APPLE SAUCE NO ISSUES NOTED . PM NENITAIVEN . WOUND TREATMENT DONE FOR SACRUM WOUND AND WOUND CONSULT ENTERED, PT ON AIR MATTRESS . TURNED AND REPOSITIONED PATIENT. NO ACUTE CHANGE IN CONDITION NOTED THROUGH SHIFT. PROVIDED FOR COMFORT AND SAFETY. WILL ENDORSE TO PM RN FOR LARISSA. Addendum: 08/16/16 at 1820 by ADEN LEON RN AOX3
--- NOTE | 2016-08-16 19:30 | NUR ---
BAND MACHINE OPERATOR NOTE TROPONIN 0.999 BEFORE AND NOW 0.[address] DENNIS STATED TO CALL TO DR ROBERTO COLLIER F\U
--- NOTE | 2016-08-16 19:42 | NUR ---
FURNACE PACKER NOTE CALLED TO DR MEJIA SPOKE WITH EXCHANGE ,STATED THAT DR MEJIA WILL CALL BACK WILL ENDORSE RN NEXT SHIFT RN GENO
--- NOTE | 2016-08-16 19:49 | NUR ---
RN NOTES SPOKE WITH DR MEJIA, INFORMED HIM ABOUT THE TROPONIN LEVEL OF 0.103, PER DR MEJIA, IT'S OK, AND WILL JUST CONTINUE MONITOR.
[2016-08-16] MEDS: DOXYCYCLINE HYCLATE (100 MG) 100 MG TABLET PO SCH (21:19)
[2016-08-16] MEDS: SIMVASTATIN 20 MG TABLET PO SCH (21:19)
[2016-08-16] MEDS ORDERED: ERGOCALCIFEROL (VITAMIN D 2) 50,000 UNIT CAPSULE PO SCH (22:00)
[2016-08-17] VITALS: BP 139/71
[2016-08-17] MEDS: ALBUTEROL HALF STRENGTH 1.25 MG/3 ML VIAL.NEB NEB SCH ×6 (02:35→23:42)
[2016-08-17] MEDS: IPRATROPIUM NEB FS 0.5 MG/2.5 ML AMPUL.NEB NEB SCH ×6 (02:36→23:42)
[2016-08-17 04:00] VITALS: BP 122/46
[2016-08-17] MEDS: BLOOD SUGAR DIAGNOSTIC 1 EACH STRIP IN SCH ×4 (06:59→21:55)
--- NOTE | 2016-08-17 07:00 | NUR ---
HONEY PROCESSOR NOTE RECEIVED PATIENT IN BED ALERT ORIENTED ,PLACED ON TELE MONITOR SR 83, ON 3L NA SAT 97% , WITH F\C TO GRAVITY WITH YELLOW COLOR URINE OUT, BED IN LOWEST AND LOCKED POSITION , CALL LIGHT WITHIN REACH, HOSPITAL ORIENTATION DONE,LT WRIST HL INTACT ,LT UPPER ARM AV FISTULA WITH BRUIT SOUND , WILL CONT TO MONITOR CLOSELY
[2016-08-17] MEDS: INSULIN REGULAR, HUMAN 100 UNIT/ML 3 ML VIAL SQ PRN ×2 (07:01→21:59)
[2016-08-17 07:11] LABS: BASOPHILS % (AUTO) 0.4 % (0.0-2.0); EOSINOPHILS # (AUTO) 0.3 /CMM (0.0-0.7); EOSINOPHILS % (AUTO) 3.7 % (0.0-6.0); HEMATOCRIT 30 % (39-51); LYMPHOCYTES # (AUTO) 0.9 /CMM (0.8-4.8); LYMPHOCYTES % (AUTO) 10.9 % (20.0-44.0); MEAN CORPUSCULAR HEMOGLOBIN 28 PG (26.0-33.0); MEAN CORPUSCULAR HGB CONC 33 g/dl (31.0-36.0); MEAN CORPUSCULAR VOLUME 84 fL (80-96); MONOCYTES # (AUTO) 0.9 /CMM (0.1-1.30); NEUTROPHILS # (AUTO) 6.2 /CMM (1.8-8.9); PLATELET COUNT (AUTO) 166 /CMM (150-450); RDW COEFFICIENT OF VARIATION 16.7 (11.5-15.0); WHITE BLOOD COUNT (AUTO) 8.4 K/uL (4.3-11.0)
--- NOTE | 2016-08-17 07:29 | NUR ---
OFFICE COORDINATOR RECEPTIONIST CLOSING NOTES NO SIGNIFICANT CHANGES OVERNIGHT, PT TOLERATING 3LPM VIA NC, NO RESPIRATORY DISTRESS NOTED. F/C IS PATENT AND DRAINING. WOUND TREATMENT DONE, KEPT SKIN CLEAN AND DRY. IV SITES PATENT, NO S/SX OF INFECTION OR INFILTRATION. ALL MEDS GIVEN ORDERED, PT TOLERATED IT WELL. CALL LIGHT WITHIN REACH. WILL ENDORSE TO AM NURSE FOR CONTINUATION OF CARE.
[2016-08-17 07:38] LABS: CREATININE 4.1 mg/dL (0.6-1.3); POTASSIUM 4.8 mmol/L (3.5-5.1)
[2016-08-17 08:00] VITALS: BP 145/100
[2016-08-17] MEDS: DOXYCYCLINE HYCLATE (100 MG) 100 MG TABLET PO SCH ×2 (08:26→21:53)
[2016-08-17] MEDS: AMLODIPINE BESYLATE 10 MG TABLET PO SCH (08:26)
[2016-08-17] MEDS: ASPIRIN 81 MG TAB.CHEW PO SCH (08:27)
[2016-08-17] MEDS: HEPARIN SODIUM, PORCINE 5000 UNITS/1 ML VIAL SQ SCH ×2 (08:27→21:54)
[2016-08-17] MEDS: METOLAZONE 2.5 MG TABLET PO SCH (08:28)
[2016-08-17] MEDS: PANTOPRAZOLE 40 MG TABLET.DR PO SCH (08:28)
[2016-08-17] MEDS: NIFEdipine (10MG) 10 MG CAPSULE PO SCH ×2 (08:28→16:31)
[2016-08-17] MEDS: METOCLOPRAMIDE HCL 10 MG TABLET PO SCH ×3 (08:28→16:32)
[2016-08-17] MEDS: FOLIC ACID 1 MG TABLET PO SCH (08:28)
[2016-08-17] MEDS: LINZESS 145 MCG PO SCH (08:34)
[2016-08-17] MEDS: ALLOPURINOL 100 MG TABLET PO SCH (08:34)
[2016-08-17] MEDS: FLUTICASONE/SALMETEROL 1 DISK IH SCH ×2 (08:36→16:35)
--- NOTE | 2016-08-17 09:15 | NUR ---
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 RECOMMENDATIONS MADE FOR SKIN PROTECTION AND WOUND CARE. DISCUSSED WITH NURSING STAFF. PT ON FIRST STEP MATTRESS. PT NOTED TO HAVE DRY PEELING SKIN TO BILATERAL HEELS. RECOMMEND MOISTURIZER. DISCUSSED WITH NURSING STAFF. MD IN AGREEMENT WITH PLAN OF CARE. Addendum: 08/17/16 at 0917 by PAPO LORA WNDNU Amended: Links added.
[2016-08-17] MEDS: HYDROGEL DRESSING 90 GM TUBE TP SCH (09:30)
[2016-08-17] MEDS ORDERED: HYDROGEL DRESSING 90 GM TUBE TP PRN (09:30)
[2016-08-17 12:00] VITALS: BP 125/47
[2016-08-17 16:00] VITALS: BP 130/51
[2016-08-17] MEDS: PRAMIPEXOLE DI-HCL 0.25 MG TABLET PO SCH (17:55)
--- NOTE | 2016-08-17 19:20 | NUR ---
RN OPENING NOTES: RECEIVED PT ON BED AWAKE ALOX2 AND VERBALLY RESPONSIVE. ON O2 THERAPY TOLERATED WELL NOT IN APPARENT DISTRESS. IV ACCESS ON R WRIST G20 KEPT SL AT THIS TIME. FC INTACT DRAINING TO A CLOSED SYSTEM. NO COMPLAINTS OF PAIN. ASPIRATION PRECAUTION OBSERVED AND SAFETY MEASURES ENSURED AT ALL TIMES. CALL LIGHT WITHIN REACH. CONTINUOUSLY MONITORED CLOSELY.
[2016-08-17 20:00] VITALS: BP 114/39
[2016-08-17] MEDS: SIMVASTATIN 20 MG TABLET PO SCH (21:53)
[2016-08-18] VITALS (7 sets, daily range): BP systolic 109–150; BP diastolic 38–58
[2016-08-18] MEDS: IPRATROPIUM NEB FS 0.5 MG/2.5 ML AMPUL.NEB NEB SCH ×6 (04:00→22:44)
[2016-08-18] MEDS: ALBUTEROL HALF STRENGTH 1.25 MG/3 ML VIAL.NEB NEB SCH ×6 (04:01→22:44)
[2016-08-18] MEDS: BLOOD SUGAR DIAGNOSTIC 1 EACH STRIP IN SCH ×4 (06:35→21:37)
[2016-08-18] MEDS: INSULIN REGULAR, HUMAN 100 UNIT/ML 3 ML VIAL SQ PRN ×4 (06:37→21:39)
--- NOTE | 2016-08-18 06:47 | NUR ---
RN CLOSING NOTES: PATIENT REMAINED ON BED NOT IN APPARENT DISTRESS, O2 TITRATED DOWN TO 2LPM C/O RT. NO SOB NOTED. REMAINED SR ON MONITOR. SAFETY MEASURES ENSURED. GOOD SKIN CARE RENDERED. MONITORED ACCORDINGLY. TO ENDORSE TO AM SHIFT RN.
--- NOTE | 2016-08-18 07:18 | NUR ---
RN INITIAL NOTES: Rec'd pt awake on bed, A/O x2, not in any distress, denies any pain/ discomfort. Pt on telemonitor, SR w/ HR 88 bpm. Pt has CORY AVF in placed and intact. Has R wrist G20, SL, flushed, patent & intact w/ no signs of infection/ infiltration noted. Has patent & intact FC. Provided comfort & safety measures. Call light placed w/in reach. Bed kept in low & in locked position. Will turn, reposition & offload heels. Will continue to monitor.
[2016-08-18] MEDS: DOXYCYCLINE HYCLATE (100 MG) 100 MG TABLET PO SCH ×2 (08:38→21:06)
[2016-08-18] MEDS: ASPIRIN 81 MG TAB.CHEW PO SCH (08:38)
[2016-08-18] MEDS: VIT B CMPLX 3/FA/VIT C/BIOTIN 1 TAB TABLET PO SCH (08:39)
[2016-08-18] MEDS: PANTOPRAZOLE 40 MG TABLET.DR PO SCH (08:39)
[2016-08-18] MEDS: NIFEdipine (10MG) 10 MG CAPSULE PO SCH ×2 (08:39→17:47)
[2016-08-18] MEDS: METOCLOPRAMIDE HCL 10 MG TABLET PO SCH ×3 (08:39→16:33)
[2016-08-18] MEDS: AMLODIPINE BESYLATE 10 MG TABLET PO SCH (08:39)
[2016-08-18] MEDS: METOLAZONE 2.5 MG TABLET PO SCH (08:40)
[2016-08-18] MEDS: ALLOPURINOL 100 MG TABLET PO SCH (08:40)
[2016-08-18] MEDS: FOLIC ACID 1 MG TABLET PO SCH (08:40)
[2016-08-18] MEDS: Z GUARD REMEDY 2 OZ OINT TP PRN (08:41)
[2016-08-18] MEDS: HYDROGEL DRESSING 90 GM TUBE TP SCH (08:41)
[2016-08-18] MEDS: HEPARIN SODIUM, PORCINE 5000 UNITS/1 ML VIAL SQ SCH ×2 (08:41→21:07)
[2016-08-18] MEDS: FLUTICASONE/SALMETEROL 1 DISK IH SCH ×2 (08:42→16:34)
[2016-08-18] MEDS: RENAL NOVASOURCE (8OZ) 1 EA BOX PO SCH ×2 (08:43→16:32)
[2016-08-18] MEDS: LINZESS 145 MCG PO SCH (08:43)
--- NOTE | 2016-08-18 16:00 | NUR ---
RN NOTES: HD started c/o HD GÓMEZ Moya.
[2016-08-18] MEDS: PRAMIPEXOLE DI-HCL 0.25 MG TABLET PO SCH (17:47)
--- NOTE | 2016-08-18 18:53 | NUR ---
RN CLOSING NOTES: No acute changes noted w/in shift. On telemonitor, still SR w/ HR 95 bpm. CORY AVF in placed and intact, will endorse to PM RN to remove dressing leonel AM as instructed by HD RN Griffin. R wrist G20, SL kept patent & intact w/ no signs of infection/ infiltration noted. FC kept patent & intact. Kept well rested. Call light placed w/in reach. Bed kept in low & in locked position. Wound care done. Turned, repositioned & offloaded heels q2h & as needed. HD tolerated well, 1.5 L output. HD nurse to discuss w/ Dr. Wheatley possible plan regarding the HD access. Needs attended. Will endorse to PM RN for LARISSA.
--- NOTE | 2016-08-18 20:00 | NUR ---
FORM STRIPPER NOTE PT IN BED AWAKE. A/O X 2, GETTING B TX PER RT. NO SOB, NO DISTRESS OR DISCOMFORT NOTED. DENIES PAIN. ON TELE SR WITH INVERTED T WAVE HR 95. REMAIN ON O2 VIA N/C O2 SAT 96%. F/C INTACT AND PATENT DRAINING YELLOWISH COLOR URINE. CORY WITH AVF AND DRESSING ON C/I/D. RT WRIST #20 SL INTACT AND PATENT. REPOSITION HIM FOR SKIN MANAGEMENT. SIDE RAILS UP X 3 AND CALL LIGHT WITHIN REACH. VSS. CONTINUE TO MONITOR HIM.
[2016-08-18] MEDS: SIMVASTATIN 20 MG TABLET PO SCH (21:06)
[2016-08-19] VITALS (10 sets, daily range): BP systolic 120–161; BP diastolic 40–58
[2016-08-19] MEDS: ALBUTEROL HALF STRENGTH 1.25 MG/3 ML VIAL.NEB NEB SCH ×6 (02:35→23:27)
[2016-08-19] MEDS: IPRATROPIUM NEB FS 0.5 MG/2.5 ML AMPUL.NEB NEB SCH ×6 (02:35→23:27)
[2016-08-19] MEDS: INSULIN REGULAR, HUMAN 100 UNIT/ML 3 ML VIAL SQ PRN ×4 (06:05→21:17)
[2016-08-19] MEDS: BLOOD SUGAR DIAGNOSTIC 1 EACH STRIP IN SCH ×4 (06:09→21:17)
--- NOTE | 2016-08-19 06:27 | NUR ---
EVAPORATOR OPERATOR MOLASSES NOTE PT IN BED AWAKE. NO DISTRESS OR DISCOMFORT NOTED. DENIES PAIN. H/L INTACT AND PATENT. NO S/S OF INFILTRATION NOTED. ON TEL SR, SINUS ARRHYTHMIA WITH INVERTED T WAVE HR 84. F/C INTACT AND PATENT DRAINING YELLOWISH COLOR URINE. REPOSITION HIM Q2H. KEPT HIM DRY AND CLEAN. ALL NEEDS ATTENDED. SIDE RAILS UP X 3 AND CALL LIGHT WITHIN REACH. VSS. WILL ENDORSE TO DAY SHIFT NURSE FOR CONTINUE TO CARE.
--- NOTE | 2016-08-19 07:18 | NUR ---
RN INITIAL NOTES: Rec'd pt awake on bed, A/O x2, not in any distress, denies any pain/ discomfort. Pt on telemonitor, SR w/ HR 88 bpm. Pt has CORY AVF in place and intact, dressing removed but still noted blood coming out, pressure dressing applied. Has R wrist G20, SL, flushed, patent & intact w/ no signs of infection/ infiltration noted. Has patent & intact FC. Provided comfort & safety measures. Call light placed w/in reach. Bed kept in low & in locked position. Will turn, reposition & offload heels. Will continue to monitor.
[2016-08-19 07:30] LABS: BASOPHILS % (AUTO) 0.5 % (0.0-2.0); EOSINOPHILS # (AUTO) 0.5 /CMM (0.0-0.7); EOSINOPHILS % (AUTO) 5.5 % (0.0-6.0); HEMATOCRIT 32 % (39-51); HEMOGLOBIN 10.9 g/dL (13.5-17.5); LYMPHOCYTES # (AUTO) 0.9 /CMM (0.8-4.8); LYMPHOCYTES % (AUTO) 10.8 % (20.0-44.0); MEAN CORPUSCULAR HEMOGLOBIN 28 PG (26.0-33.0); MEAN CORPUSCULAR HGB CONC 34 g/dl (31.0-36.0); MEAN CORPUSCULAR VOLUME 83 fL (80-96); MONOCYTES # (AUTO) 0.9 /CMM (0.1-1.30); MONOCYTES % (AUTO) 11.2 % (2.0-12.0); PLATELET COUNT (AUTO) 163 /CMM (150-450); WHITE BLOOD COUNT (AUTO) 8.3 K/uL (4.3-11.0)
[2016-08-19 07:42] LABS: CALCIUM, SERUM 8.6 mg/dL (8.5-10.1); CREATININE 3.4 mg/dL (0.6-1.3); POTASSIUM 4.7 mmol/L (3.5-5.1)
[2016-08-19] MEDS: METOLAZONE 2.5 MG TABLET PO SCH (08:24)
[2016-08-19] MEDS: ASPIRIN 81 MG TAB.CHEW PO SCH (08:24)
[2016-08-19] MEDS: RENAL NOVASOURCE (8OZ) 1 EA BOX PO SCH ×2 (08:24→17:32)
[2016-08-19] MEDS: FOLIC ACID 1 MG TABLET PO SCH (08:24)
[2016-08-19] MEDS: METOCLOPRAMIDE HCL 10 MG TABLET PO SCH ×3 (08:25→17:33)
[2016-08-19] MEDS: PANTOPRAZOLE 40 MG TABLET.DR PO SCH (08:25)
[2016-08-19] MEDS: DOXYCYCLINE HYCLATE (100 MG) 100 MG TABLET PO SCH ×2 (08:25→21:08)
[2016-08-19] MEDS: AMLODIPINE BESYLATE 10 MG TABLET PO SCH (08:25)
[2016-08-19] MEDS: VIT B CMPLX 3/FA/VIT C/BIOTIN 1 TAB TABLET PO SCH (08:25)
[2016-08-19] MEDS: LINZESS 145 MCG PO SCH (08:25)
[2016-08-19] MEDS: ALLOPURINOL 100 MG TABLET PO SCH (08:25)
[2016-08-19] MEDS: NIFEdipine (10MG) 10 MG CAPSULE PO SCH ×2 (08:26→17:37)
[2016-08-19] MEDS: HYDROGEL DRESSING 90 GM TUBE TP SCH (08:26)
[2016-08-19] MEDS: FLUTICASONE/SALMETEROL 1 DISK IH SCH ×2 (08:26→17:38)
[2016-08-19] MEDS: Z GUARD REMEDY 2 OZ OINT TP PRN (08:26)
[2016-08-19] MEDS: hydrALAZINE HCL 50 MG TABLET PO SCH ×3 (09:26→17:33)
[2016-08-19] MEDS: ISOSORBIDE DINITRATE (20MG) 20 MG TABLET PO SCH ×2 (09:26→17:33)
[2016-08-19] MEDS: HEPARIN SODIUM, PORCINE 5000 UNITS/1 ML VIAL SQ SCH ×2 (09:27→21:09)
--- NOTE | 2016-08-19 14:45 | NUR ---
RN NOTES: Per Dr. Gallo, order consult from Dr. Petty for AVF evaluation.
[2016-08-19] MEDS: PRAMIPEXOLE DI-HCL 0.25 MG TABLET PO SCH (17:33)
--- NOTE | 2016-08-19 18:58 | NUR ---
RN CLOSING NOTES: No acute changes noted w/in shift. CORY AVF kept in place and intact, for evaluation, awaiting for Dr. Petty. R wrist G20, SL kept patent & intact w/ no signs of infection/ infiltration noted. FC kept patent & intact. Kept well rested. Call light placed w/in reach. Bed kept in low & in locked position. Wound care done. Turned, repositioned & offloaded heels q2h & as needed. Needs attended. Will endorse to PM RN for LARISSA.
--- NOTE | 2016-08-19 19:00 | NUR ---
MS RN NOTES RECEIVED PATIENT IN BED AWAKE, ALERT AND ORIENTED X 2. IN STABLE CONDITION NO S/S OF DISTRESS NOTED. VERBALLY RESPONSIVE WITH NO C/O PAIN OR DISCOMFORTS VOICED. IV SITE INTACT W/ NO S/S OF INFILTRATION NOTED. CALL LIGHT WITHIN REACH. BED AT LOW POSITION AND LOCKED FOR SAFETY. WILL CONTINUE TO MONITOR ACCORDINGLY.
[2016-08-19] MEDS: SIMVASTATIN 20 MG TABLET PO SCH (21:08)
[2016-08-20] MEDS: ALBUTEROL HALF STRENGTH 1.25 MG/3 ML VIAL.NEB NEB SCH ×6 (03:20→22:59)
[2016-08-20] MEDS: IPRATROPIUM NEB FS 0.5 MG/2.5 ML AMPUL.NEB NEB SCH ×6 (03:20→22:59)
[2016-08-20 04:00] VITALS: BP 118/52
[2016-08-20] MEDS: BLOOD SUGAR DIAGNOSTIC 1 EACH STRIP IN SCH ×4 (05:52→21:48)
[2016-08-20] MEDS: INSULIN REGULAR, HUMAN 100 UNIT/ML 3 ML VIAL SQ PRN ×3 (05:55→21:54)
--- NOTE | 2016-08-20 06:38 | NUR ---
MS RN CLOSING NOTES PATIENT COMFORTABLY IN BED ASLEEP AND EASILY AWAKEN,ON ATB WITH NO A/R NOTED. ALERT AND VERBALLY X 2 RESPONSIVE DENIES PAIN OR DISTRESS, RESPONDS APPROPRIATELY TO VERBAL STIMULI, RESPIRATIONS EVEN UNLABORED BREATH SOUNDS. APICAL PULSE REGULAR; ON 02 2LPM VIA NC 02 SAT 98% NO S/S OF HYPO/HYPERGLYCEMIA. GOOD SKIN CARE PROVIDED. PATIENT IN STABLE CONDITION WITH NO SOB NO S/S OF DISTRESS NO NAUSEA AND VOMITING NO HEADACHE NO PAIN, NO COMPLAIN OF CHEST PAIN SAFETY ENVIRONMENT PROVIDED. FREE OF CLUTTERS, SAFE HAZARD FREE ENVIRONMENT. NEEDS ATTENDED AND ANTICIPATED, NURSING CARE RENDERED, KEPT CLEAN AND DRY AND COMFORTABLE. ALL DUE MEDS WAS GIVEN. STRICTLY REPOSITIONED Q2H FOR COMFORT AND SKIN MGT. CALL LIGHT IN REACH, BED LOWERED AND LOCKED, SR X2 FOR SAFETY AND WILL ENDORSE CONTINUE PLAN OF CARE.
[2016-08-20] MEDS: RENAL NOVASOURCE (8OZ) 1 EA BOX PO SCH ×2 (08:00→17:00)
[2016-08-20] MEDS: FLUTICASONE/SALMETEROL 1 DISK IH SCH ×2 (09:00→17:00)
[2016-08-20] MEDS: VIT B CMPLX 3/FA/VIT C/BIOTIN 1 TAB TABLET PO SCH (09:00)
[2016-08-20] MEDS: METOLAZONE 2.5 MG TABLET PO SCH (09:00)
[2016-08-20] MEDS: LINZESS 145 MCG PO SCH (09:00)
[2016-08-20] MEDS: HYDROGEL DRESSING 90 GM TUBE TP SCH (09:00)
[2016-08-20] MEDS: METOCLOPRAMIDE HCL 10 MG TABLET PO SCH ×3 (09:00→17:00)
[2016-08-20] MEDS: HEPARIN SODIUM, PORCINE 5000 UNITS/1 ML VIAL SQ SCH ×2 (09:59→21:48)
[2016-08-20 10:00] VITALS: BP 158/52
[2016-08-20] MEDS: ASPIRIN 81 MG TAB.CHEW PO SCH (10:00)
[2016-08-20] MEDS: DOXYCYCLINE HYCLATE (100 MG) 100 MG TABLET PO SCH ×2 (10:01→21:48)
[2016-08-20] MEDS: FOLIC ACID 1 MG TABLET PO SCH (10:01)
[2016-08-20] MEDS: NIFEdipine (10MG) 10 MG CAPSULE PO SCH ×2 (10:01→17:00)
[2016-08-20] MEDS: hydrALAZINE HCL 50 MG TABLET PO SCH ×3 (10:02→17:00)
[2016-08-20] MEDS: ALLOPURINOL 100 MG TABLET PO SCH (10:07)
[2016-08-20] MEDS: PANTOPRAZOLE 40 MG TABLET.DR PO SCH (10:07)
[2016-08-20] MEDS: ISOSORBIDE DINITRATE (20MG) 20 MG TABLET PO SCH ×2 (10:08→17:00)
--- NOTE | 2016-08-20 17:30 | NUR ---
PT GETTING DIALIZED AT THIS TIME...1700 MEDICATIONS NOTED GIVEN Addendum: 08/20/16 at 1838 by SOLEDAD FLEMING RN CORRECTION FROM ABOVE STATMENT...PM MEDS NOT GIVEN PT GETTING DIALIZED
[2016-08-20] MEDS: PRAMIPEXOLE DI-HCL 0.25 MG TABLET PO SCH (18:00)
[2016-08-20 20:00] VITALS: BP 162/57
[2016-08-20] MEDS: SIMVASTATIN 20 MG TABLET PO SCH (21:48)
[2016-08-21] VITALS: BP 161/65
[2016-08-21] MEDS: hydrALAZINE HCL IV 20 MG VIAL IV PRN (00:26)
[2016-08-21] MEDS: ALBUTEROL HALF STRENGTH 1.25 MG/3 ML VIAL.NEB NEB SCH ×4 (03:20→15:15)
[2016-08-21] MEDS: IPRATROPIUM NEB FS 0.5 MG/2.5 ML AMPUL.NEB NEB SCH ×4 (03:20→15:15)
[2016-08-21 04:00] VITALS: BP 106/58
[2016-08-21] MEDS: BLOOD SUGAR DIAGNOSTIC 1 EACH STRIP IN SCH ×3 (06:31→17:14)
[2016-08-21] MEDS: INSULIN REGULAR, HUMAN 100 UNIT/ML 3 ML VIAL SQ PRN ×3 (06:34→17:15)
--- NOTE | 2016-08-21 07:20 | NUR ---
RN NOTES: PT RECEIVED IN STABLE CONDITION ALERT AWAKE OX2. ON 2LPM O2 VIA NC. BREATHING PATTERN REGULAR & UNLABOURED. REPONSIVE TO VERBAL & TACTILE STIMULI. ON TELE MONITOR. CONTINUE TO MONITOR CONTROLLED A-FIB. IV SITE INTACT, SALINE LOCK. CORY A/V SHUNT COVERED WITH DRESSING. F/C DRAINING WITH YELLOW COLOR URINE WITH GRAVITY. SAFETY MEASURES OBSERVED. CALL LIGHT WITHIN REACH. WILL CONTINUE TO MONITOR.
[2016-08-21 07:23] LABS: BASOPHILS # (AUTO) 0.1 /CMM (0.0-0.2); BASOPHILS % (AUTO) 0.6 % (0.0-2.0); EOSINOPHILS # (AUTO) 0.6 /CMM (0.0-0.7); EOSINOPHILS % (AUTO) 5.1 % (0.0-6.0); HEMATOCRIT 33 % (39-51); HEMOGLOBIN 10.9 g/dL (13.5-17.5); LYMPHOCYTES # (AUTO) 1.3 /CMM (0.8-4.8); LYMPHOCYTES % (AUTO) 11.4 % (20.0-44.0); MEAN CORPUSCULAR HEMOGLOBIN 28 PG (26.0-33.0); MEAN CORPUSCULAR HGB CONC 34 g/dl (31.0-36.0); MEAN CORPUSCULAR VOLUME 83 fL (80-96); MONOCYTES # (AUTO) 1.4 /CMM (0.1-1.30); MONOCYTES % (AUTO) 12.3 % (2.0-12.0); NEUTROPHILS # (AUTO) 7.9 /CMM (1.8-8.9); NEUTROPHILS % (AUTO) 70.6 % (43.0-81.0); PLATELET COUNT (AUTO) 200 /CMM (150-450); RDW COEFFICIENT OF VARIATION 15.8 (11.5-15.0); WHITE BLOOD COUNT (AUTO) 11.2 K/uL (4.3-11.0)
[2016-08-21 07:46] LABS: POTASSIUM 4.3 mmol/L (3.5-5.1)
[2016-08-21] MEDS: RENAL NOVASOURCE (8OZ) 1 EA BOX PO SCH ×2 (07:57→17:11)
[2016-08-21 08:00] VITALS: BP 149/59
[2016-08-21] MEDS: FLUTICASONE/SALMETEROL 1 DISK IH SCH ×2 (09:04→17:12)
[2016-08-21] MEDS: LINZESS 145 MCG PO SCH (09:05)
[2016-08-21] MEDS: FOLIC ACID 1 MG TABLET PO SCH (09:05)
[2016-08-21] MEDS: DOXYCYCLINE HYCLATE (100 MG) 100 MG TABLET PO SCH (09:06)
[2016-08-21] MEDS: ISOSORBIDE DINITRATE (20MG) 20 MG TABLET PO SCH ×2 (09:06→17:09)
[2016-08-21] MEDS: PANTOPRAZOLE 40 MG TABLET.DR PO SCH (09:06)
[2016-08-21] MEDS: METOLAZONE 2.5 MG TABLET PO SCH (09:06)
[2016-08-21] MEDS: ALLOPURINOL 100 MG TABLET PO SCH (09:06)
[2016-08-21] MEDS: ASPIRIN 81 MG TAB.CHEW PO SCH (09:06)
[2016-08-21] MEDS: hydrALAZINE HCL 50 MG TABLET PO SCH ×3 (09:07→17:09)
[2016-08-21] MEDS: METOCLOPRAMIDE HCL 10 MG TABLET PO SCH ×3 (09:07→17:08)
[2016-08-21] MEDS: NIFEdipine (10MG) 10 MG CAPSULE PO SCH ×2 (09:08→17:08)
[2016-08-21] MEDS: VIT B CMPLX 3/FA/VIT C/BIOTIN 1 TAB TABLET PO SCH (09:08)
[2016-08-21] MEDS: HYDROGEL DRESSING 90 GM TUBE TP SCH (09:09)
[2016-08-21] MEDS: HEPARIN SODIUM, PORCINE 5000 UNITS/1 ML VIAL SQ SCH (09:10)
[2016-08-21 12:00] VITALS: BP 120/53
[2016-08-21 16:00] VITALS: BP 117/44
[2016-08-21] MEDS ORDERED: CLONIDINE HCL 0.2MG/24H PTWK 1 EA PATCH TD SCH (16:00)
--- NOTE | 2016-08-21 16:17 | NUR ---
RN NOTES: F/C D/C. CONTINUE TO MONITOR FOR URINE OUTPUT. RECEIVED ORDERES TO D/C HOME TODAY WITH HOME HEALTH. SRAVANTHI DAUGHTER MADE AWARE. CONTINUE TO MONITOR.
[2016-08-21] MEDS: PRAMIPEXOLE DI-HCL 0.25 MG TABLET PO SCH (17:08)
[2016-08-21 18:19] VITALS: BP 117/44
--- NOTE | 2016-08-21 18:50 | NUR ---
RN NOTES; PT DISCHARGE TO HOME WITH HOME HEALTH IN STABLE CONDITION. LEFT WITH DAUGHTER SRAVANTHI & SON IN [place]. LEFT WITH ALL BELONGINGS, & MEDICATION. DISCHARGE INSTRUCTIONS GIVEN TO THE PATIENT & FAMILY. VERBALIZE TO UNDERSTAND. Addendum: 08/21/16 at 1936 by MELISSA PARRA RN POST F/C REMOVAL, CHANGE WET DIAPER X1. IV SITE REMOVED & APPLIED PRESSURE DRESSING ON IT.
== END 2016-08-21 18:33 | disposition home health service (06) | DRG 280 ==
LOC: ER 18:52 → TELE 22:03 → ICU 22:57 → TELE1 08-16 08:18 → MEDSG1 08-19 09:12 → TELE1 08-20 23:55 → MEDSG1 08-21 17:22
PROVIDERS: ADMIT Internal Medicine; ATTEND Internal Medicine
PROC: 5A09357 Assistance with Respiratory Ventilation, Less than 24 Consecutive Hours, Continuous Positive Airway Pressure (ICD-10-PCS; principal; 2016-08-14)
PROC: 5A1D60Z (ICD-10-PCS; 2016-08-14)
DX: I13.2 Hypertensive heart and chronic kidney disease with heart failure and with stage 5 chronic kidney disease, or end stage renal disease (principal); I50.33 Acute on chronic diastolic (congestive) heart failure; I21.4 Non-ST elevation (NSTEMI) myocardial infarction; J96.01 Acute respiratory failure with hypoxia; J96.02 Acute respiratory failure with hypercapnia; N18.6 End stage renal disease; E11.22 Type 2 diabetes mellitus with diabetic chronic kidney disease; E78.5 Hyperlipidemia, unspecified; Z99.2 Dependence on renal dialysis; I25.10 Atherosclerotic heart disease of native coronary artery without angina pectoris; D63.8 Anemia in other chronic diseases classified elsewhere; Z87.891 Personal history of nicotine dependence; I35.0 Nonrheumatic aortic (valve) stenosis; G25.81 Restless legs syndrome; J44.9 Chronic obstructive pulmonary disease, unspecified
CPT/HCPCS: 31720; 36415; 36600; 71010-TC; 80048-TC; 80053-TC; 80061-TC; 80076-TC; 82962-TC; 83735-TC; 84100-TC; 84484-TC; 85025-TC; 85730-TC; 87081-TC; 90935-TC; 94762-TC; 94799-TC; 97001-TC; 99082-TC; A4216; A4606; A6248; A6402; A6403; J0360; J1644; J1815; J3420; J3490; J7030; J8597; Z7610

== ENCOUNTER 2017-01-18 00:26 | Inpatient (IN) | payer MEDICARE, OTHER ==
[~2017-01-18] VITALS: Ht 167.6 cm; Wt 64.0 kg
[2017-01-18] VITALS (8 sets, daily range): BP systolic 124–155; BP diastolic 50–75
[~2017-01-18 00:26] MED LIST changes: +ALLO100T PO; +AMLO10TA2 PO; -AMLO1TAB65 PO; +ASPI81TA2 PO; +BUME1TAB4 PO; +CYAN10006 IM; +ERGO50003 PO; +FOLI1TAB16 PO; -HYDR100T27 PO; +LINA145C PO; -METO100T3 PO; +METO5TAB87 PO; +NIFE20CA PO; +PRAM0.253 PO; +PROC10TA PO; -RIVA1PAT2 TD; -RIVA1PAT3 TP; +SIMV20TA6 PO
--- NOTE | 2017-01-18 00:35 | NUR ---
86 YO MALE bbra; sob, gradual onset x 1 day. 20G IV SALINE LOCK IN PLACE VIA PARAMEDICS. PT PUT ON NRB AT 15LPM. SKIN WARM AND DRY. USE OF ACCESSORY MUSCLES NOTED, TACHYPNEA. PT PLACED IN GOWN/PLACED ON VENEER STACKER. CRACKLES HEARD BILAT.
--- NOTE | 2017-01-18 00:35 | NUR ---
LAB AT BEDSIDE TO DRAW PER MD ORDERS
[2017-01-18] MEDS ORDERED: ALBUTEROL FS 2.5 MG/3 ML VIAL.NEB ONE (00:37)
[2017-01-18] MEDS ORDERED: IPRATROPIUM NEB FS 0.5 MG/2.5 ML AMPUL.NEB ONE (00:37)
[2017-01-18] MEDS ORDERED: methylPREDNISolone SOD SUCC 125 MG/2ML VIAL ONE (00:38)
--- NOTE | 2017-01-18 00:40 | NUR ---
RT AT BEDSIDE FOR BRETHING TX PER MD ORDERS.
[2017-01-18] MEDS ORDERED: NITROGLYCERIN PACKET 1 GM PACKET ONE ×2 (00:59→06:22)
[2017-01-18] MEDS ORDERED: ALBUTEROL FS 2.5 MG/3 ML VIAL.NEB CONTNEB ONE (01:00)
[2017-01-18] MEDS ORDERED: IPRATROPIUM NEB FS 0.5 MG/2.5 ML AMPUL.NEB NEB ONE (01:00)
[2017-01-18] MEDS ORDERED: methylPREDNISolone SOD SUCC 125 MG/2ML VIAL IV ONE (01:00)
[2017-01-18] MEDS ORDERED: NITROGLYCERIN PACKET 1 GM PACKET TD ONE (01:00)
[2017-01-18 01:12] LABS: BASOPHILS # (AUTO) 0.1 /CMM (0.0-0.2); BASOPHILS % (AUTO) 0.4 % (0.0-2.0); EOSINOPHILS # (AUTO) 0.7 /CMM (0.0-0.7); EOSINOPHILS % (AUTO) 5.2 % (0.0-6.0); HEMATOCRIT 33 % (39-51); HEMOGLOBIN 10.6 g/dL (13.5-17.5); LYMPHOCYTES # (AUTO) 0.9 /CMM (0.8-4.8); LYMPHOCYTES % (AUTO) 6.1 % (20.0-44.0); MEAN CORPUSCULAR HEMOGLOBIN 28 PG (26.0-33.0); MEAN CORPUSCULAR HGB CONC 33 g/dl (31.0-36.0); MEAN CORPUSCULAR VOLUME 87 fL (80-96); MONOCYTES # (AUTO) 1.1 /CMM (0.1-1.30); MONOCYTES % (AUTO) 7.4 % (2.0-12.0); NEUTROPHILS # (AUTO) 11.6 /CMM (1.8-8.9); NEUTROPHILS % (AUTO) 80.9 % (43.0-81.0); PLATELET COUNT (AUTO) 273 /CMM (150-450); RDW COEFFICIENT OF VARIATION 16.5 (11.5-15.0); RED BLOOD CELL COUNT(AUTO) 3.78 MIL/uL (4.5-6.0); WHITE BLOOD COUNT (AUTO) 14.3 K/uL (4.3-11.0)
[2017-01-18 01:25] LABS: CALCIUM, SERUM 8.2 mg/dL (8.5-10.1); CARBON DIOXIDE 18 mmol/L (21-32); CHLORIDE 111 mmol/L (98-107); CREATININE 2.8 mg/dL (0.6-1.3); GLUCOSE 271 mg/dL (74-106); SODIUM SERUM 141 mmol/L (136-145); UREA NITROGEN, BLOOD 45 mg/dL (7-18)
[2017-01-18 01:27] LABS: POTASSIUM 6.3 mmol/L (3.5-5.1)
[2017-01-18 01:32] LABS: TROPONIN I < 0.017 ng/mL (0.00-0.056)
--- NOTE | 2017-01-18 01:32 | NUR ---
XRAY AT BEDSIDE FOR CHEST XR PER MD ORDERS
--- NOTE | 2017-01-18 01:33 | NUR ---
INFLUENZA SWAB OBTAINED PER MD ORDERS;LAB AT BEDSIDE.
--- NOTE | 2017-01-18 01:43 | NUR ---
PANEL PAGED PER ER MD ORDER.
--- NOTE | 2017-01-18 01:43 | NUR ---
Garland Basilio DO called
[2017-01-18] MEDS ORDERED: LEVOFLOXACIN 500 MG /D5W 100ML 100 ML IV ONE (01:49)
[2017-01-18] MEDS ORDERED: ENOXAPARIN SODIUM 60 MG/0.6 ML DISP.SYRIN SQ ONE ×2 (01:49→02:00)
[2017-01-18] MEDS ORDERED: FUROSEMIDE 40 MG/4 ML VIAL ONE (01:49)
[2017-01-18] MEDS ORDERED: SODIUM POLYSTYRENE SULFONATE 15 G/60 ML BOTTLE ONE (01:49)
[2017-01-18] MEDS ORDERED: DEXTROSE 50%-WATER 50 ML DISP.SYRIN ONE (01:50)
[2017-01-18] MEDS ORDERED: INSULIN REGULAR, HUMAN 100 UNIT/ML 10 ML VIAL ONE (01:50)
--- NOTE | 2017-01-18 01:53 | NUR ---
ER MD SPOKE TO DR. MORELOS REGARDING PT ADMISSION. WILL CALL FOR REPORT.
[2017-01-18 01:57] LABS: ABG BASE EXCESS -9.3 mmol/L; ABG OXYGEN SATURATION 94.1 % (92.0-98.5); ABG PCO2 36.3 mmHg (35.0-45.0); ABG PH 7.279 (7.350-7.450); ABG PO2 77.6 mmHg (75.0-100.0); AaDO2 238.1 mmHg; COHb 0.7 % (0.5-1.5); MetHb 0.4 % (0.0-1.5); O2Hb 93.1 % (94.0-97.0); SITE, ABG Right Radial; VENT MODE, BG 8L SIMPLE MASK
[2017-01-18] MEDS ORDERED: HYDROCODONE/APAP 5/325MG 1 EACH TABLET PO PRN (02:00)
[2017-01-18] MEDS ORDERED: ONDANSETRON HCL/PF 4 MG/2 ML VIAL IVP PRN (02:00)
[2017-01-18] MEDS ORDERED: ZOLPIDEM TARTRATE 5 MG TABLET PO PRN (02:00)
[2017-01-18] MEDS ORDERED: PROCHLORPERAZINE MALEATE 10 MG TABLET PO PRN (02:00)
[2017-01-18] MEDS ORDERED: DEXTROSE 50%-WATER 50 ML DISP.SYRIN IVP ONE (02:00)
[2017-01-18] MEDS ORDERED: ACETAMINOPHEN 325 MG TABLET PO PRN (02:00)
[2017-01-18] MEDS ORDERED: LEVOFLOXACIN 500 MG /D5W 100ML 500 MG/100 ML PIGGYBACK IV ONE (02:00)
[2017-01-18] MEDS ORDERED: MAG HYDROX/AL HYDROX/SIMETH 30 ML UDC PO PRN (02:00)
[2017-01-18] MEDS ORDERED: FUROSEMIDE 40 MG/4 ML VIAL IV ONE (02:00)
[2017-01-18] MEDS ORDERED: SODIUM POLYSTYRENE SULFONATE 15 G/60 ML BOTTLE PO ONE (02:00)
[2017-01-18] MEDS ORDERED: MAGNESIUM HYDROXIDE 30 ML UDC PO PRN (02:00)
[2017-01-18] MEDS ORDERED: DEXTROSE 50%-WATER 50 ML DISP.SYRIN IV PRN (02:00)
[2017-01-18] MEDS ORDERED: INSULIN REGULAR, HUMAN 100 UNIT/ML 10 ML VIAL IV ONE (02:00)
[2017-01-18 02:03] LABS: ALANINE AMINOTRANSFERASE 15 U/L (12-78); ALBUMIN 3.6 g/dL (3.4-5.0); ALKALINE PHOSPHATASE 129 U/L (46-116); ASPARTATE AMINOTRANSFERASE 4 U/L (15-37); B-TYPE NATRIURETIC PEPTIDE 12059 PG/ML (0-125); BILIRUBIN,DIRECT 0.1 mg/dL (0.0-0.2); BILIRUBIN,TOTAL 0.5 mg/dL (0.2-1.0)
[2017-01-18 02:14] LABS: TOTAL PROTEIN, SERUM 7.9 g/dL (6.4-8.2)
--- NOTE | 2017-01-18 02:21 | NUR ---
PT TBA TO GET 111.2.
--- NOTE | 2017-01-18 02:21 | NUR ---
PT MEDICATED ORDERED PER MD, PT RESTING QUIETLY/NAD NOTED.
[2017-01-18] MEDS ORDERED: hydrALAZINE HCL IV 20 MG VIAL IV PRN (02:30)
[2017-01-18] MEDS ORDERED: CEFTRIAXONE 1 G in IV D5W 50 ML IV SCH (02:30)
--- NOTE | 2017-01-18 02:38 | NUR ---
PT REPORT GIVEN TO SYDNIE.
--- NOTE | 2017-01-18 03:29 | NUR ---
PT TO VQ SCAN PER MD ORDERS VIA STRETCHER. NAD NOTED.
--- NOTE | 2017-01-18 04:26 | NUR ---
PT TO GET VIA STRETCHER, ACLS WITH RN. NOLAN NOTED.
--- NOTE | 2017-01-18 04:30 | NUR ---
RN NOTES RECEIVED PATIENT FROM ER VIA STRETCHER WITH NO RESPIRATORY DISTRESS OR SHORTNESS OF BREATH. BREATHING EVEN AND UNLABORED. ON O2 AT 2LPM VIA NASAL CANNULA TOLERATING WELL. ALERT AND ORIENTED. ABLE TO VERBALIZE NEEDS. FINNISH SPEAKING ONLY. ABDOMEN SOFT AND NON TENDER. BOWEL SOUNDS PRESENT IN ALL FOUR QUADRANTS. NO COMPLAINT OF PAIN OF THIS TIME. VITAL SIGNS WNL. SKIN ASSESSMENT DONE. KEPT CLEAN AND DRY. WILL CONTINUE TO MONITOR.
[2017-01-18] MEDS: CEFTRIAXONE 1 G VIAL ONE ×2 (04:38→06:15)
[2017-01-18] MEDS: BLOOD SUGAR DIAGNOSTIC 1 EACH STRIP IN SCH ×6 (05:00→21:53)
--- NOTE | 2017-01-18 07:00 | NUR ---
RN CLOSING NOTES RESTING COMFORTABLY IN BED WITH NO DISTRESS NOTED. BREATHING EVEN AND UNLABORED. NO COMPLAINT OF PAIN OR DISCOMFORT. KEPT CLEAN AND DRY. WILL ENDORSE TO AM SHIFT FOR CONTINUITY OF CARE.
--- NOTE | 2017-01-18 07:05 | NUR ---
initial rn note received pt in bed, awake, a/o x2, able to make needs known, able to follow commands, pt is able to move all extremities, pt is on 2lnc, sating well, no s/s of resp.distress or sob noted at this time, pt is on tele monitor showing sr in 80's, no /co of chest pain or discomfort at this time, pt is ambulatory w/ assist, uses bathroom, pt has r hand #20g, sl, c/d/i/patent, flushing well. no s/s of infection/ infiltration noted at this time, patti hd fistula, bruit and thrill positive,pt is noted with skin issues, treatment will be carried out, all safety measures in place at all times, call light within easy reach, will monitor pt closely for changes
[2017-01-18] MEDS: NITROGLYCERIN PACKET 1 GM PACKET TOP SCH ×3 (07:12→21:53)
--- NOTE | 2017-01-18 08:27 | NUR ---
WOUND CARE CONSULT PATIENT SEEN AND SKIN ASSESSED. PATIENT NOTED TO MOISTURE RELATED EXCORIATION ON THE BUTTOCKS AND SACRUM. ZGUARD ORDERED WELL TURNING SCHEDULE TO ASSIST IN PATIENT TURNING. WOUND TREATMENT ORDERED AND DISCUSSED WITH NURSING STAFF AT THE BEDSIDE. PATIENT FRANCHESKA 11; NEEDS MINOR ASSISTANCE WITH TURNING AND REPOSITIONING. PT ON STRIKER GEL MATTRESS; RECOMMENDED FIRST STEP LOW AIR LOSS MATTRESS NO RIN MAGAÑA RN TO ACQUIRE. MD IN AGREEMENT WITH TREATMENT PLAN. WILL CONTINUE TO FOLLOW PATIENT NEEDED. Addendum: 01/18/17 at 0829 by LUIS COLLIER RN Amended: Links added. Addendum: 01/18/17 at 1035 by LUIS COLLIER RN RECOMMEND ISOFLEX AIR MATTRESS NOT LOW AIR LOSS. GÓMEZ GAR TO PLACE PATIENT ON MATTRESS IN THE UNIT.
[2017-01-18] MEDS ORDERED: Linaclotide (Linzess) 145 MCG PO SCH (09:00)
[2017-01-18] MEDS ORDERED: FLUTICASONE/SALMETEROL DISKUS IH SCH (09:00)
[2017-01-18] MEDS ORDERED: Medication Not On Formulary EA (Esomeprazole Mag Trihydrate (Nexium) 40 MG) PO SCH (09:00)
[2017-01-18] MEDS: ALLOPURINOL 100 MG TABLET PO SCH (09:38)
[2017-01-18] MEDS: FUROSEMIDE 40 MG/4 ML VIAL IV SCH ×2 (09:38→17:20)
[2017-01-18] MEDS: ASPIRIN 81 MG TAB.CHEW PO SCH (09:38)
[2017-01-18] MEDS: FOLIC ACID 1 MG TABLET PO SCH (09:38)
[2017-01-18] MEDS: AMLODIPINE BESYLATE 10 MG TABLET PO SCH (09:39)
[2017-01-18] MEDS: Z GUARD REMEDY 2 OZ OINT TP PRN (09:39)
[2017-01-18] MEDS: HEPARIN SODIUM, PORCINE 5000 UNITS/1 ML VIAL SQ SCH ×2 (09:40→21:49)
[2017-01-18] MEDS: INSULIN REGULAR, HUMAN 100 UNIT/ML 3 ML VIAL SQ PRN ×3 (09:41→22:04)
[2017-01-18] MEDS: NIFEdipine XL 60 MG TAB PO SCH ×2 (09:41→17:23)
--- NOTE | 2017-01-18 10:23 | NUR ---
GET NOTE LORI HD RN AT BEDSIDE. PT WILL BE RECEIVING HD AT THIS TIME
--- NOTE | 2017-01-18 10:40 | NUR ---
rn note pink medication non administered for pt safety
--- NOTE | 2017-01-18 10:59 | NUR ---
rn note and dr. gutierrez made rounds, aware of all labs and results, all new orders will be carried out
--- NOTE | 2017-01-18 12:00 | NUR ---
rn note hd completed, pt tolerated well, vvs, 2l removed
--- NOTE | 2017-01-18 15:07 | NUR ---
rn note mrsa sample taken and sent to lab
[2017-01-18] MEDS: PRAMIPEXOLE DI-HCL 0.25 MG TABLET PO SCH (17:20)
--- NOTE | 2017-01-18 18:22 | NUR ---
rn closing note pt was kept clean and dry, all orders carried out, all medications given, report will be given to pm rn for vazquez
--- NOTE | 2017-01-18 19:30 | NUR ---
SOLID WASTE ANALYST INITIAL NOTE PT RECEIVED RESTING IN BED. A/O X2 AND ABLE TO MAKE NEEDS KNOWN. ON 2L OF O2 AND SATURATING 96%. BREATHING EVEN, REGULAR AND UNLABORED. IV R HAND #20 CLEAN, PATENT AND FLUSHING WELL. TELE- SR 60'S. CALL LIGHT WITHIN REACH. WILL CONTINUE TO MONITOR.
[2017-01-18] MEDS: SIMVASTATIN 20 MG TABLET PO SCH (21:53)
[2017-01-19] VITALS: BP 109/45
[2017-01-19 04:00] VITALS: BP 128/57
[2017-01-19] MEDS: NITROGLYCERIN PACKET 1 GM PACKET TOP SCH ×3 (05:09→21:00)
[2017-01-19] MEDS: CEFTRIAXONE 1 G in IV D5W 50 ML IV SCH (05:09)
[2017-01-19 07:09] LABS: BASOPHILS % (AUTO) 0.4 % (0.0-2.0); EOSINOPHILS # (AUTO) 0.2 /CMM (0.0-0.7); EOSINOPHILS % (AUTO) 2.4 % (0.0-6.0); HEMATOCRIT 29 % (39-51); HEMOGLOBIN 9.7 g/dL (13.5-17.5); LYMPHOCYTES # (AUTO) 1.3 /CMM (0.8-4.8); LYMPHOCYTES % (AUTO) 13.4 % (20.0-44.0); MEAN CORPUSCULAR HEMOGLOBIN 28 PG (26.0-33.0); MEAN CORPUSCULAR HGB CONC 33 g/dl (31.0-36.0); MEAN CORPUSCULAR VOLUME 85 fL (80-96); MONOCYTES # (AUTO) 0.8 /CMM (0.1-1.30); MONOCYTES % (AUTO) 8.6 % (2.0-12.0); NEUTROPHILS # (AUTO) 7.3 /CMM (1.8-8.9); NEUTROPHILS % (AUTO) 75.2 % (43.0-81.0); PLATELET COUNT (AUTO) 208 /CMM (150-450); RDW COEFFICIENT OF VARIATION 16.6 (11.5-15.0); RED BLOOD CELL COUNT(AUTO) 3.43 MIL/uL (4.5-6.0); WHITE BLOOD COUNT (AUTO) 9.8 K/uL (4.3-11.0)
[2017-01-19 07:18] LABS: CALCIUM, SERUM 8.7 mg/dL (8.5-10.1); CARBON DIOXIDE 30 mmol/L (21-32); CHLORIDE 103 mmol/L (98-107); CREATININE 2.7 mg/dL (0.6-1.3); GLUCOSE 156 mg/dL (74-106); MAGNESIUM 1.9 mg/dL (1.8-2.4); PHOSPHORUS 5.5 mg/dL (2.5-4.9); POTASSIUM 3.9 mmol/L (3.5-5.1); SODIUM SERUM 142 mmol/L (136-145); UREA NITROGEN, BLOOD 35 mg/dL (7-18)
[2017-01-19 07:23] LABS: CHOLESTEROL 179 mg/dL (<200); HDL CHOLESTEROL 43 mg/dL (40-60); LDL 114 mg/dL (0-99); TRIGLYCERIDES 170 mg/dL (30-150)
--- NOTE | 2017-01-19 07:45 | NUR ---
APPLICATIONS PROCESSOR CLOSING NOTE PT REMAINED STABLE DURING SHIFT. ALL NEEDS ATTENDED TO. ASSISTED TO BEDSIDE COMMODE NEEDED. KEPT CLEAN AND DRY. ALL DUE MEDS GIVEN ORDERED AND WELL TOLERATED. CALL LIGHT WITHIN REACH. WILL ENDORSE TO NEXT SHIFT FOR CONTINUITY OF CARE.
--- NOTE | 2017-01-19 07:48 | NUR ---
CRACKER AND COOKIE MACHINE OPERATOR NOTE PT RECEIVED RESTING IN BED. A/O X2 AND ABLE TO MAKE NEEDS KNOWN. ON 2L OF O2 AND SATURATING 96%. BREATHING EVEN, REGULAR AND UNLABORED. IV LT ARM INTACT PATENT AND F ON BLOOD TRANSFUSION AT THIS TIME . TELE- SR 74 . CALL LIGHT WITHIN REACH. WILL CONTINUE TO MONITOR.BED IN LOWEST AND LOCKED POSITION TRANSFUSION
[2017-01-19 08:00] VITALS: BP 138/57
[2017-01-19] MEDS: INSULIN REGULAR, HUMAN 100 UNIT/ML 3 ML VIAL SQ PRN ×3 (08:53→17:42)
[2017-01-19] MEDS: BLOOD SUGAR DIAGNOSTIC 1 EACH STRIP IN SCH ×4 (08:56→21:27)
[2017-01-19] MEDS: FLUTICASONE/VILANTEROL 1 EACH BLST.W.DEV IH SCH (09:02)
[2017-01-19] MEDS: FOLIC ACID 1 MG TABLET PO SCH (09:03)
[2017-01-19] MEDS: AMLODIPINE BESYLATE 10 MG TABLET PO SCH (09:03)
[2017-01-19] MEDS: FUROSEMIDE 40 MG/4 ML VIAL IV SCH ×2 (09:03→16:19)
[2017-01-19] MEDS: NIFEdipine XL 60 MG TAB PO SCH ×2 (09:04→16:14)
[2017-01-19] MEDS: ALLOPURINOL 100 MG TABLET PO SCH (09:04)
[2017-01-19] MEDS: ASPIRIN 81 MG TAB.CHEW PO SCH (09:04)
[2017-01-19] MEDS: HEPARIN SODIUM, PORCINE 5000 UNITS/1 ML VIAL SQ SCH ×2 (09:05→21:32)
[2017-01-19] MEDS: PANTOPRAZOLE 40 MG TABLET.DR PO SCH (09:18)
[2017-01-19 10:00] VITALS: BP 138/57
--- NOTE | 2017-01-19 10:20 | NUR ---
MS RN NOTE HD STARTED ORDERED, ALL NEEDS ATTENDED
--- NOTE | 2017-01-19 12:30 | NUR ---
MS RN NOTE SEEN BY DR NASSAR AWARE THAT PATIENT ON HD AT THIS TIME , AND REMOVED 2L OF FLUIDS , BP 124/71
--- NOTE | 2017-01-19 13:28 | NUR ---
TMS RN NOTE AMBULATE AROUND IN HIS ROOM WITH DAUGHTER AND STUFF , TOLERATED WELL. WILL F\U
--- NOTE | 2017-01-19 15:00 | NUR ---
MS RN NOTE DR BEE NOTIFIED THAT MAG 1.9 ,PHOS 5.5 ,STATED THAT PATIENT HAS HD TODAY, WILL F\U
[2017-01-19 16:00] VITALS: BP 97/34
--- NOTE | 2017-01-19 16:46 | NUR ---
MS RN NOTE NEW HL ON RT AC PEDRO 22 INSERTED WITH GOOD BLOOD RETURN , KEEP CLEAN DRY . OFFERED TO TO GO TO BR, PATIENT STATED THAT HE IS OK , WILL CONT TO MONITOR ACCORDANTLY
[2017-01-19] MEDS: PRAMIPEXOLE DI-HCL 0.25 MG TABLET PO SCH (17:16)
--- NOTE | 2017-01-19 18:38 | NUR ---
MS RN NOTE FAMILY AT BEDSIDE, KEEP CLEAN DRY, HAVING DINER , CALL LIGHT WITHIN REACH , ALL NEEDS ATTENDED WILL CONT TO MONITOR CLOSELY,
--- NOTE | 2017-01-19 19:40 | NUR ---
MS RN INITIAL NOTE RECEIVED PT RESTING IN BED. A/O X2 AND ABLE TO MAKE SOME NEEDS KNOWN. ON 2L OF O2 VIA NC AND SATURATING 98%. BREATHING REGULAR, EVEN AND UNLABORED. IV RAC #22 CLEAN, PATENT AND FLUSHING WELL. BEDSIDE COMMODE NEXT TO BED. CALL LIGHT WITHIN REACH. WILL CONTINUE TO MONITOR.
[2017-01-19 20:00] VITALS: BP 84/42
[2017-01-19] MEDS: SIMVASTATIN 20 MG TABLET PO SCH (21:32)
[2017-01-20 04:00] VITALS: BP 117/47
[2017-01-20] MEDS: NITROGLYCERIN PACKET 1 GM PACKET TOP SCH ×3 (05:03→21:56)
[2017-01-20] MEDS: CEFTRIAXONE 1 G in IV D5W 50 ML IV SCH (05:03)
--- NOTE | 2017-01-20 07:22 | NUR ---
MS RN CLOSING NOTE PT REMAINED STABLE DURING SHIFT. NO C/O PAIN OR DISCOMFORT NOTED. ALL NEEDS ATTENDED TO PROMPTLY. NO SOB NOTED. CALL LIGHT WITHIN REACH. WILL ENDORSE TO NEXT SHIFT FOR CONTINUITY OF CARE.
--- NOTE | 2017-01-20 07:30 | NUR ---
MS RN AM NOTE RECEIVED PT RESTING IN BED. A/O X2 AND ABLE TO MAKE NEEDS KNOWN. ON 2L OF O2, BREATHING EVEN, REGULAR AND UNLABORED. IV RT AC G22 FLUSHES WELL, SITE CLEAR, CORY SHUNT IN PLACE, THRILL PRESENT, SEE NURSING FLOWSHEET FOR SKIN ISSUES, PURRED DIET. CALL LIGHT WITHIN REACH. WILL CONTINUE TO MONITOR.BED IN LOWEST AND LOCKED POSITION
[2017-01-20 08:00] VITALS: BP 114/52
[2017-01-20 08:03] LABS: BASOPHILS # (AUTO) 0.1 /CMM (0.0-0.2); BASOPHILS % (AUTO) 0.6 % (0.0-2.0); EOSINOPHILS # (AUTO) 0.6 /CMM (0.0-0.7); EOSINOPHILS % (AUTO) 5.9 % (0.0-6.0); HEMATOCRIT 33 % (39-51); LYMPHOCYTES # (AUTO) 1.4 /CMM (0.8-4.8); MEAN CORPUSCULAR HEMOGLOBIN 28 PG (26.0-33.0); MEAN CORPUSCULAR HGB CONC 33 g/dl (31.0-36.0); MEAN CORPUSCULAR VOLUME 85 fL (80-96); MONOCYTES # (AUTO) 1.2 /CMM (0.1-1.30); MONOCYTES % (AUTO) 11.2 % (2.0-12.0); NEUTROPHILS # (AUTO) 7.5 /CMM (1.8-8.9); NEUTROPHILS % (AUTO) 69.3 % (43.0-81.0); PLATELET COUNT (AUTO) 209 /CMM (150-450); RDW COEFFICIENT OF VARIATION 15.9 (11.5-15.0); RED BLOOD CELL COUNT(AUTO) 3.88 MIL/uL (4.5-6.0); WHITE BLOOD COUNT (AUTO) 10.8 K/uL (4.3-11.0)
[2017-01-20 08:17] LABS: CALCIUM, SERUM 8.5 mg/dL (8.5-10.1); CARBON DIOXIDE 28 mmol/L (21-32); CHLORIDE 97 mmol/L (98-107); CREATININE 3.5 mg/dL (0.6-1.3); GLUCOSE 143 mg/dL (74-106); POTASSIUM 4.2 mmol/L (3.5-5.1); SODIUM SERUM 137 mmol/L (136-145); UREA NITROGEN, BLOOD 31 mg/dL (7-18)
[2017-01-20] MEDS: BLOOD SUGAR DIAGNOSTIC 1 EACH STRIP IN SCH ×4 (08:17→22:01)
[2017-01-20] MEDS: PANTOPRAZOLE 40 MG TABLET.DR PO SCH (08:17)
[2017-01-20] MEDS: INSULIN REGULAR, HUMAN 100 UNIT/ML 3 ML VIAL SQ PRN ×3 (08:25→16:47)
[2017-01-20] MEDS: FLUTICASONE/VILANTEROL 1 EACH BLST.W.DEV IH SCH (08:55)
[2017-01-20] MEDS: FOLIC ACID 1 MG TABLET PO SCH (08:56)
[2017-01-20] MEDS: ALLOPURINOL 100 MG TABLET PO SCH (08:56)
[2017-01-20] MEDS: ASPIRIN 81 MG TAB.CHEW PO SCH (08:56)
[2017-01-20] MEDS: AMLODIPINE BESYLATE 10 MG TABLET PO SCH (08:57)
[2017-01-20] MEDS: NIFEdipine XL 60 MG TAB PO SCH ×2 (08:57→16:12)
[2017-01-20] MEDS: FUROSEMIDE 40 MG/4 ML VIAL IV SCH ×2 (08:58→16:12)
[2017-01-20] MEDS: HEPARIN SODIUM, PORCINE 5000 UNITS/1 ML VIAL SQ SCH ×2 (09:01→21:58)
--- NOTE | 2017-01-20 09:30 | NUR ---
MS RN NOTES ADMINISTERED DUE MEDS. ACCUCHECK DONE EARLIER [1245]. 165 MG/DL, ADMINISTERED 3 UNITS HUM R PER SS.
--- NOTE | 2017-01-20 11:20 | NUR ---
MS RN NOTES ACCUCHECK. BS = 146 MG/DL. ADMINISTERED 2U HUM R PER SLIDING SCALE.
[2017-01-20 12:00] VITALS: BP 95/47
[2017-01-20 16:00] VITALS: BP_SYST 110; BP_SYST 116; BP_SYST 117; BP_DIAS 45; BP_DIAS 47; BP_DIAS 60
--- NOTE | 2017-01-20 16:45 | NUR ---
MS RN NOTES ACCUCHECK. BS = 143 MG/DL. ADMINISTERED 2U HUM R PER SLIDING SCALE.
[2017-01-20] MEDS: PRAMIPEXOLE DI-HCL 0.25 MG TABLET PO SCH (17:04)
--- NOTE | 2017-01-20 18:16 | NUR ---
MS RN CLOSING NOTE PT RESTING IN BED. A/O X2 AND ABLE TO MAKE NEEDS KNOWN. ON 2L OF O2, BREATHING EVEN, REGULAR AND UNLABORED. IV RT AC G22 FLUSHES WELL, SITE CLEAR, CORY SHUNT NOTED, THRILL PRESENT, PUREED DIET. CALL LIGHT WITHIN REACH. ALL NEEDS MET, BED IN LOWEST AND LOCKED POSITION. ALL NEEDS MET. NO OTHER SIGNIFICANT CHANGE IN CONDITION. PER DR. BEE TO COLLECT 24 HR URINE CREATININE. SPECIMEN BOTTLE AT BEDSIDE. 0 SPECIMEN AT THIS TIME. Addendum: 01/20/17 at 1818 by GILMAR TOWNSEND RN WILL ENDORSE TO NEXT SHIFT FOR LARISSA.
[2017-01-20 20:00] VITALS: BP 120/70
--- NOTE | 2017-01-20 20:38 | NUR ---
MS-1/EDUCATION COUNSELOR REPORT TO DOMINIC MAGAÑA FOR CONT OF CARE. ASSIGNMENT SWITCH.
--- NOTE | 2017-01-20 21:00 | NUR ---
received pt from day shift, alert, follows commands, on 2L 02 sat well, lungs partially congested, no edema, diaper, on, tolerates diet, HD pt, v/s stable, no pain, pt turned and repositioned.
[2017-01-20] MEDS: SIMVASTATIN 20 MG TABLET PO SCH (21:56)
[2017-01-21 04:00] VITALS: BP 111/50
--- NOTE | 2017-01-21 04:14 | NUR ---
pt is resting in the bed, no acute distress overnight, v/s stable, no pain, pt cleaned, changed and repositioned q2hrs.
[2017-01-21] MEDS: NITROGLYCERIN PACKET 1 GM PACKET TOP SCH ×3 (04:37→21:00)
[2017-01-21] MEDS: CEFTRIAXONE 1 G in IV D5W 50 ML IV SCH (04:58)
[2017-01-21 07:00] VITALS: BP 111/50
[2017-01-21 07:31] LABS: BASOPHILS % (AUTO) 0.4 % (0.0-2.0); EOSINOPHILS # (AUTO) 0.5 /CMM (0.0-0.7); EOSINOPHILS % (AUTO) 4.7 % (0.0-6.0); HEMATOCRIT 31 % (39-51); HEMOGLOBIN 10.4 g/dL (13.5-17.5); LYMPHOCYTES # (AUTO) 1.2 /CMM (0.8-4.8); LYMPHOCYTES % (AUTO) 10.5 % (20.0-44.0); MEAN CORPUSCULAR HEMOGLOBIN 29 PG (26.0-33.0); MEAN CORPUSCULAR HGB CONC 34 g/dl (31.0-36.0); MEAN CORPUSCULAR VOLUME 85 fL (80-96); MONOCYTES # (AUTO) 1.3 /CMM (0.1-1.30); MONOCYTES % (AUTO) 11.3 % (2.0-12.0); NEUTROPHILS # (AUTO) 8.3 /CMM (1.8-8.9); NEUTROPHILS % (AUTO) 73.1 % (43.0-81.0); PLATELET COUNT (AUTO) 184 /CMM (150-450); RDW COEFFICIENT OF VARIATION 15.8 (11.5-15.0); RED BLOOD CELL COUNT(AUTO) 3.62 MIL/uL (4.5-6.0); WHITE BLOOD COUNT (AUTO) 11.4 K/uL (4.3-11.0)
[2017-01-21 08:00] VITALS: BP 117/47
[2017-01-21 08:01] LABS: CALCIUM, SERUM 8.2 mg/dL (8.5-10.1); CARBON DIOXIDE 25 mmol/L (21-32); CHLORIDE 93 mmol/L (98-107); CREATININE 4.3 mg/dL (0.6-1.3); GLUCOSE 156 mg/dL (74-106); MAGNESIUM 1.9 mg/dL (1.8-2.4); PHOSPHORUS 6.9 mg/dL (2.5-4.9); SODIUM SERUM 131 mmol/L (136-145); UREA NITROGEN, BLOOD 48 mg/dL (7-18)
--- NOTE | 2017-01-21 08:03 | NUR ---
MS RN NOTES, PATIENT IN BED RESTING COMFORTABLY, ON 2LPM VIA N/C NO SOB NOTED AT THIS TIME, CORY SHUNT WITH POSITIVE BRUIT AND TRILL SOUND, PIERCE HEPLOCK INTACT, PATENT AND NO S/S OF INFECTION, CONTINUE IN 24 HRS URINE COLLECTION ORDERED, BED IN LOCKED AND LOWEST POSITION, NO DISTRESS NOTED AT THIS TIME, PLAN OF CARE DISCUSSED WITH PATIENT, WILL CONTINUE TO MONITOR CLOSELY.
[2017-01-21] MEDS: PANTOPRAZOLE 40 MG TABLET.DR PO SCH (08:29)
[2017-01-21] MEDS: ALLOPURINOL 100 MG TABLET PO SCH (08:30)
[2017-01-21] MEDS: HEPARIN SODIUM, PORCINE 5000 UNITS/1 ML VIAL SQ SCH ×2 (08:31→21:22)
[2017-01-21] MEDS: INSULIN REGULAR, HUMAN 100 UNIT/ML 3 ML VIAL SQ PRN ×3 (08:32→21:31)
[2017-01-21] MEDS: NIFEdipine XL 60 MG TAB PO SCH ×2 (08:33→16:25)
[2017-01-21] MEDS: AMLODIPINE BESYLATE 10 MG TABLET PO SCH (08:34)
[2017-01-21] MEDS: FUROSEMIDE 40 MG/4 ML VIAL IV SCH ×2 (08:35→16:24)
[2017-01-21] MEDS: FOLIC ACID 1 MG TABLET PO SCH (08:42)
[2017-01-21] MEDS: ASPIRIN 81 MG TAB.CHEW PO SCH (08:42)
[2017-01-21] MEDS: BLOOD SUGAR DIAGNOSTIC 1 EACH STRIP IN SCH ×4 (08:43→21:22)
[2017-01-21] MEDS: FLUTICASONE/VILANTEROL 1 EACH BLST.W.DEV IH SCH (09:03)
--- NOTE | 2017-01-21 11:30 | NUR ---
MS RN NOTE ON HD AT THIS TIME
--- NOTE | 2017-01-21 12:04 | NUR ---
MS Caitlin MAJOR NITROGLYCERIN ONT ON HD AT THIS TIME Addendum: 01/21/17 at 1206 by MARILU LUI RN SPOKE WITH ISAURO ABOUT HD OUTPATIENT SCHEDULE STATED WILL SPEAK WITH FAMILY LATTER ON
[2017-01-21] MEDS: IV NS 0.9% 1,000 ML IV ONE (14:27)
--- NOTE | 2017-01-21 14:28 | NUR ---
CAREER AND GUIDANCE COUNSELOR NOTE HD COMPLETED BP 115/78 2LOF FLUIDS REMOVED
--- NOTE | 2017-01-21 15:21 | NUR ---
MS RN NOTES, TYLENOL GIVEN FOR ROGEL, ULTRASOUND KIDNEY DONE,
[2017-01-21 16:13] VITALS: BP 114/50
[2017-01-21 17:00] VITALS: BP 118/70
[2017-01-21] MEDS: PRAMIPEXOLE DI-HCL 0.25 MG TABLET PO SCH (18:07)
--- NOTE | 2017-01-21 18:18 | NUR ---
MS RN NOTE HAVING DINNER , ABLE TO EAT SELF ,NOT IN ACUTE DISTRESS
--- NOTE | 2017-01-21 18:23 | NUR ---
MS RN NOTE PLACED ON MRSA NARE ISOLATION
--- NOTE | 2017-01-21 18:36 | NUR ---
MS RN NOTES, SCHEDULE FOR HD OUTPATIENT WAS DISCUSSED WITH DAUGHTER.
--- NOTE | 2017-01-21 19:30 | NUR ---
MS RN INITIAL NOTE PT RECEIVED SITTING UP IN BED. A/O X3-4 AND ABLE TO MAKE NEEDS KNOWN. ON 2L OF O2 VIA NC AND SATURATING 100%. BREATHING EVEN, REGULAR AND UNLABORED. NO SOB NOTED AT THIS TIME. IV PIERCE #20 CLEAN, DRY, PATENT AND FLUSHING WELL. CORY SHUNT CLEAN, DRY, AND THRILL AND BRUIT PRESENT. ISOLATION PRECAUTIONS OBSERVED. BED LOCKED IN PLACE AND IN LOWEST POSITION. CALL LIGHT WITHIN REACH AT ALL TIMES. WILL CONTINUE TO MONITOR.
[2017-01-21 20:00] VITALS: BP 99/39
[2017-01-21] MEDS: SIMVASTATIN 20 MG TABLET PO SCH (21:43)
[2017-01-22 04:00] VITALS: BP 101/35
[2017-01-22] MEDS: NITROGLYCERIN PACKET 1 GM PACKET TOP SCH ×3 (05:00→21:23)
[2017-01-22] MEDS: CEFTRIAXONE 1 G in IV D5W 50 ML IV SCH (05:21)
--- NOTE | 2017-01-22 06:50 | NUR ---
MS RN CLOSING NOTE PT REMAINED STABLE DURING SHIFT. NO ACUTE DISTRESS NOTED. ALL NEEDS ATTENDED TO PROMPTLY. ALL DUE MEDS GIVEN ORDERED AND WELL TOLERATED. KEPT CLEAN AND DRY AT ALL TIMES. CALL LIGHT WITHIN REACH. WILL ENDORSE TO NEXT SHIFT FOR CONTINUITY OF CARE.
[2017-01-22] MEDS: BLOOD SUGAR DIAGNOSTIC 1 EACH STRIP IN SCH ×4 (07:30→21:24)
[2017-01-22] MEDS: PANTOPRAZOLE 40 MG TABLET.DR PO SCH (07:30)
[2017-01-22 08:00] VITALS: BP 120/45
--- NOTE | 2017-01-22 08:00 | NUR ---
MS1/RN AM SHIFT INITIAL NOTES RECEIVED PT AWAKE SITTING IN BED, A/O X 4, DENIES ANY SYMPTOMS. NO ACUTE CHANGE OF CONDITION NOTED. ON 2L O2 VIA N/C SATURATING @ 97%, LUNG SOUNDS CLEAR. IV SITE FLUSHED, PATENT WITH NO S/S OF INFECTION. AV SHUNT + OF THRILL & BRUIT. BLOOD GLUCOSE CHECKED, 193 RESULT, PT TO BE GIVEN 3 UNITS OF REGULAR INSULIN PER SLIDING SCALE, NO S/S OF HYPERGLYCEMIA. SCHEDULED AM MEDS TO BE GIVEN. CL WITHIN REACHED AND SAFETY MAINTAINED. ON GOING MONITORING.
[2017-01-22] MEDS ORDERED: CLONIDINE HCL 0.2MG/24H PTWK 1 EA PATCH TD SCH (09:00)
[2017-01-22] MEDS: FLUTICASONE/VILANTEROL 1 EACH BLST.W.DEV IH SCH (09:20)
[2017-01-22] MEDS: FOLIC ACID 1 MG TABLET PO SCH (09:20)
[2017-01-22] MEDS: FUROSEMIDE 40 MG/4 ML VIAL IV SCH ×2 (09:20→17:47)
[2017-01-22] MEDS: ASPIRIN 81 MG TAB.CHEW PO SCH (09:20)
[2017-01-22] MEDS: AMLODIPINE BESYLATE 10 MG TABLET PO SCH (09:21)
[2017-01-22] MEDS: ALLOPURINOL 100 MG TABLET PO SCH (09:21)
[2017-01-22] MEDS: NIFEdipine XL 60 MG TAB PO SCH ×2 (09:22→17:48)
[2017-01-22] MEDS: HEPARIN SODIUM, PORCINE 5000 UNITS/1 ML VIAL SQ SCH ×2 (09:26→21:31)
[2017-01-22] MEDS: INSULIN REGULAR, HUMAN 100 UNIT/ML 3 ML VIAL SQ PRN ×4 (09:26→21:33)
[2017-01-22 11:53] LABS: ABG BASE EXCESS 2.2 mmol/L; ABG OXYGEN SATURATION 89.9 % (92.0-98.5); ABG PCO2 38.1 mmHg (35.0-45.0); ABG PH 7.454 (7.350-7.450); AaDO2 46.1 mmHg; COHb 0.3 % (0.5-1.5); MetHb 0.8 % (0.0-1.5); O2Hb 88.9 % (94.0-97.0); SITE, ABG Right Radial; VENT MODE, BG ROOM AIR
--- NOTE | 2017-01-22 12:00 | NUR ---
MS1/RN NOON ROUNDS NO CHANGE OF CONDITION. MONITORING CONTINUED.
[2017-01-22 13:13] LABS: BASOPHILS # (AUTO) 0.1 /CMM (0.0-0.2); BASOPHILS % (AUTO) 0.4 % (0.0-2.0); EOSINOPHILS # (AUTO) 0.5 /CMM (0.0-0.7); HEMATOCRIT 30 % (39-51); HEMOGLOBIN 10.1 g/dL (13.5-17.5); LYMPHOCYTES # (AUTO) 1.2 /CMM (0.8-4.8); MEAN CORPUSCULAR HEMOGLOBIN 28 PG (26.0-33.0); MEAN CORPUSCULAR HGB CONC 33 g/dl (31.0-36.0); MEAN CORPUSCULAR VOLUME 85 fL (80-96); MONOCYTES # (AUTO) 1.3 /CMM (0.1-1.30); MONOCYTES % (AUTO) 10.1 % (2.0-12.0); NEUTROPHILS # (AUTO) 9.5 /CMM (1.8-8.9); NEUTROPHILS % (AUTO) 75.5 % (43.0-81.0); PLATELET COUNT (AUTO) 200 /CMM (150-450); RDW COEFFICIENT OF VARIATION 15.5 (11.5-15.0); RED BLOOD CELL COUNT(AUTO) 3.58 MIL/uL (4.5-6.0); WHITE BLOOD COUNT (AUTO) 12.5 K/uL (4.3-11.0)
[2017-01-22 13:31] LABS: CALCIUM, SERUM 8.2 mg/dL (8.5-10.1); CARBON DIOXIDE 26 mmol/L (21-32); CHLORIDE 92 mmol/L (98-107); CREATININE 4.8 mg/dL (0.6-1.3); GLUCOSE 166 mg/dL (74-106); MAGNESIUM 1.9 mg/dL (1.8-2.4); PHOSPHORUS 6.7 mg/dL (2.5-4.9); SODIUM SERUM 131 mmol/L (136-145); UREA NITROGEN, BLOOD 51 mg/dL (7-18)
[2017-01-22] MEDS ORDERED: FLU VACC QS 2017-18(36MOS+)/PF 0.5 ML DISP.SYRIN IM ONE (14:00)
[2017-01-22 16:00] VITALS: BP 104/33
--- NOTE | 2017-01-22 17:00 | NUR ---
MS1/RN PM ROUNDS PM CARE PROVIDED, NO CHANGE OF CONDITION. ON GOING MONITORING.
[2017-01-22] MEDS: PRAMIPEXOLE DI-HCL 0.25 MG TABLET PO SCH (17:48)
--- NOTE | 2017-01-22 19:23 | NUR ---
MS1/RN AM SHIFT END NOTES NO ACUTE CHANGE OF CONDITION NOTED DURING THE SHIFT. NEEDS MET. PT ENDORSED TO PM NURSE TO CONTINUE CARE. CL WITHIN REACHED, SAFETY MAINTAINED AND ISOLATION OBSERVED.
[2017-01-22 20:00] VITALS: BP 99/40
--- NOTE | 2017-01-22 20:14 | NUR ---
MS RN INITIAL NOTES RECEIVED PT AWAKE IN BED, A/O X 4, DENIES ANY SYMPTOMS. NO ACUTE CHANGE OF CONDITION NOTED. ON 2L O2 VIA N/C SATURATING @ 97%, LUNG SOUNDS CLEAR. IV SITE FLUSHED, PATENT WITH NO S/S OF INFECTION. AV SHUNT + OF THRILL & BRUIT. DENIES ANY PAIN SCHEDULED PM MEDS TO BE GIVEN. CL WITHIN REACHED AND SAFETY MAINTAINED. ON GOING MONITORING
[2017-01-22] MEDS: SIMVASTATIN 20 MG TABLET PO SCH (21:21)
[2017-01-22] MEDS: MUPIROCIN OINT 2% 22 GM TUBE SCH (21:37)
--- NOTE | 2017-01-23 | NUR ---
RN/MS NOTES: RECEIVED REPORT FROM NURSE ABREU. PT. WAS SITTING ON COMMODE. A/O X 4. ABLE TO MAKE NEEDS KNOWN. HAS CORY SHUNT INPLACE. HAS PIERCE # 20 PATENT AND INTACT W/ NO S/S OF INFECTION OR INFILTRATION NOTED. CALL LIGHT W/ REACH. WILL CONTINUE TO MONITOR.
[2017-01-23 04:00] VITALS: BP 102/48
[2017-01-23] MEDS: NITROGLYCERIN PACKET 1 GM PACKET TOP SCH ×3 (05:00→21:49)
[2017-01-23] MEDS: CEFTRIAXONE 1 G in IV D5W 50 ML IV SCH (05:22)
[2017-01-23] MEDS: BLOOD SUGAR DIAGNOSTIC 1 EACH STRIP IN SCH ×4 (06:51→21:50)
[2017-01-23] MEDS: PANTOPRAZOLE 40 MG TABLET.DR PO SCH (06:52)
[2017-01-23] MEDS: INSULIN REGULAR, HUMAN 100 UNIT/ML 3 ML VIAL SQ PRN ×4 (06:52→22:12)
--- NOTE | 2017-01-23 07:00 | NUR ---
RN NOTES RECEIVED PT ON BED, A/Ox4, RESPIRATION EVEN AND UNLABORED, ON O2 AT 1 L N/C , NO SOB NOTED, DENIES ANY DISTRESS, R UPPER ARM IV SITE G#20 CDI, SR UP x3, CALL LIGHT WITHIN EASY REACH, BED LOCKED AND IN LOWEST POSITION , WILL CONTINUE TO MONITOR PT CLOSELY.
[2017-01-23 07:43] LABS: BASOPHILS % (AUTO) 0.4 % (0.0-2.0); EOSINOPHILS # (AUTO) 0.5 /CMM (0.0-0.7); EOSINOPHILS % (AUTO) 4.4 % (0.0-6.0); HEMATOCRIT 28 % (39-51); HEMOGLOBIN 9.4 g/dL (13.5-17.5); LYMPHOCYTES # (AUTO) 1.2 /CMM (0.8-4.8); LYMPHOCYTES % (AUTO) 11.2 % (20.0-44.0); MEAN CORPUSCULAR HEMOGLOBIN 28 PG (26.0-33.0); MEAN CORPUSCULAR HGB CONC 34 g/dl (31.0-36.0); MEAN CORPUSCULAR VOLUME 85 fL (80-96); MONOCYTES # (AUTO) 1.3 /CMM (0.1-1.30); MONOCYTES % (AUTO) 11.7 % (2.0-12.0); NEUTROPHILS # (AUTO) 7.9 /CMM (1.8-8.9); NEUTROPHILS % (AUTO) 72.3 % (43.0-81.0); PLATELET COUNT (AUTO) 177 /CMM (150-450); RDW COEFFICIENT OF VARIATION 15.6 (11.5-15.0); RED BLOOD CELL COUNT(AUTO) 3.31 MIL/uL (4.5-6.0); WHITE BLOOD COUNT (AUTO) 10.9 K/uL (4.3-11.0)
[2017-01-23 08:00] VITALS: BP 121/86
[2017-01-23 08:00] LABS: CALCIUM, SERUM 8.2 mg/dL (8.5-10.1); CARBON DIOXIDE 26 mmol/L (21-32); CHLORIDE 91 mmol/L (98-107); CREATININE 5.8 mg/dL (0.6-1.3); GLUCOSE 156 mg/dL (74-106); POTASSIUM 4.5 mmol/L (3.5-5.1); SODIUM SERUM 132 mmol/L (136-145); UREA NITROGEN, BLOOD 61 mg/dL (7-18)
[2017-01-23] MEDS: FLUTICASONE/VILANTEROL 1 EACH BLST.W.DEV IH SCH (08:30)
[2017-01-23] MEDS: MUPIROCIN OINT 2% 22 GM TUBE SCH ×2 (08:31→21:50)
[2017-01-23] MEDS: HEPARIN SODIUM, PORCINE 5000 UNITS/1 ML VIAL SQ SCH ×2 (08:32→21:53)
--- NOTE | 2017-01-23 09:00 | NUR ---
RN NOTES PT RECEIVING HD AT THIS TIME , BP MORNING MEDS HELD AT THIS TIME .
--- NOTE | 2017-01-23 12:00 | NUR ---
RN NOTES JAMES MEMBER SERVICE SPECIALIST NOTIFIED REGARDING PH =[phone] , NEW ORDER GIVEN
[2017-01-23] MEDS: FUROSEMIDE 40 MG/4 ML VIAL IV SCH (12:11)
[2017-01-23] MEDS: FOLIC ACID 1 MG TABLET PO SCH (12:11)
[2017-01-23] MEDS: ALLOPURINOL 100 MG TABLET PO SCH (12:11)
[2017-01-23] MEDS: NIFEdipine XL 60 MG TAB PO SCH ×2 (12:12→17:15)
[2017-01-23] MEDS: AMLODIPINE BESYLATE 10 MG TABLET PO SCH (12:12)
[2017-01-23] MEDS: ASPIRIN 81 MG TAB.CHEW PO SCH (12:12)
--- NOTE | 2017-01-23 12:14 | NUR ---
RN NOTES BP AFTER HD 104/44 , HR 81 . MORNING NORVASC AND PROCARDIA HELD AT THIS THIS TIME .
[2017-01-23] MEDS: CALCIUM ACETATE 667 MG TABLET PO SCH ×2 (13:50→17:14)
[2017-01-23 16:00] VITALS: BP 100/40
[2017-01-23] MEDS: PRAMIPEXOLE DI-HCL 0.25 MG TABLET PO SCH (17:14)
[2017-01-23] MEDS: FUROSEMIDE 40 MG TABLET PO SCH (17:18)
--- NOTE | 2017-01-23 18:00 | NUR ---
RN NOTES SUPPORTIVE FAMILY AT THE BEDSIDE, PT JELLY ANY DISTRESS, TOLERATED PUREE DIET WELL, SR UP x3, CALL LIGHT WITHIN EASY REACH, BED LOCKED AND IN LOWEST POSITION, WILL ENDORSE TO PROJECTION CAMERA OPERATOR NURSE FOR LARISSA .
--- NOTE | 2017-01-23 19:49 | NUR ---
MS RN INITIAL NOTES RECEIVED PT ON BED, A/Ox4, RESPIRATION EVEN AND UNLABORED, ON O2 AT 1 L N/C , NO SOB NOTED, DENIES ANY DISTRESS, R UPPER ARM IV SITE G#20 CDI, SR UP x3, CALL LIGHT WITHIN EASY REACH, BED LOCKED AND IN LOWEST POSITION , WILL CONTINUE TO MONITOR PT CLOSELY.
[2017-01-23 20:00] VITALS: BP 113/63
[2017-01-23] MEDS: SIMVASTATIN 20 MG TABLET PO SCH (21:48)
[2017-01-24 04:00] VITALS: BP 114/31
[2017-01-24] MEDS: NITROGLYCERIN PACKET 1 GM PACKET TOP SCH ×3 (05:00→21:25)
[2017-01-24] MEDS: CEFTRIAXONE 1 G in IV D5W 50 ML IV SCH (05:27)
--- NOTE | 2017-01-24 05:29 | NUR ---
NITRO PATCH HELD BP 114/31, PT STABLE, WILL ENDORSE TO MONITOR
[2017-01-24] MEDS: BLOOD SUGAR DIAGNOSTIC 1 EACH STRIP IN SCH ×4 (06:01→21:25)
[2017-01-24] MEDS: INSULIN REGULAR, HUMAN 100 UNIT/ML 3 ML VIAL SQ PRN ×4 (06:02→21:33)
--- NOTE | 2017-01-24 06:03 | NUR ---
MS RN CLOSING NOTES TRANSFERED PT ON BED, A/Ox4, RESPIRATION EVEN AND UNLABORED, ON O2 AT 1 L N/C , NO SOB NOTED, DENIES ANY DISTRESS, R UPPER ARM IV SITE G#20 CDI, SR UP x3, ALL AM MEDS GIVEN AND TRANSFERED WITH PT, REPORT GIVEN TO ESTEBAN MS 2 RN FOR LARISSA. FAMILY AWARE. CALL LIGHT WITHIN EASY REACH, BED LOCKED AND IN LOWEST POSITION , WILL CONTINUE TO MONITOR PT CLOSELY.
--- NOTE | 2017-01-24 07:05 | NUR ---
RN INITIAL NOTES REPORT RECEIVED AT THE BEDSIDE. PATIENT IS SLEEPING. NO SOB OR DISTRESS NOTED AT THIS TIME. PATIENT DOES NOT APPEAR TO BE IN PAIN, NO FACIAL GRIMACE NOTED. BED IN A LOW POSITION, CALL LIGHT WITHIN PATIENT REACH, WILL CONTINUE TO MONITOR.
[2017-01-24 07:14] LABS: CALCIUM, SERUM 8.4 mg/dL (8.5-10.1); CARBON DIOXIDE 28 mmol/L (21-32); CHLORIDE 92 mmol/L (98-107); CREATININE 4.8 mg/dL (0.6-1.3); GLUCOSE 146 mg/dL (74-106); MAGNESIUM 1.9 mg/dL (1.8-2.4); PHOSPHORUS 6.6 mg/dL (2.5-4.9); POTASSIUM 4.2 mmol/L (3.5-5.1); SODIUM SERUM 132 mmol/L (136-145); UREA NITROGEN, BLOOD 46 mg/dL (7-18)
[2017-01-24] MEDS ORDERED: ERGOCALCIFEROL (VITAMIN D 2) 50,000 UNIT CAPSULE PO SCH (07:30)
[2017-01-24 08:00] VITALS: BP 103/52
[2017-01-24] MEDS: MUPIROCIN OINT 2% 22 GM TUBE SCH ×2 (08:19→21:25)
[2017-01-24] MEDS: FLUTICASONE/VILANTEROL 1 EACH BLST.W.DEV IH SCH (08:19)
[2017-01-24] MEDS: CALCIUM ACETATE 667 MG TABLET PO SCH ×3 (08:19→17:20)
[2017-01-24] MEDS: HEPARIN SODIUM, PORCINE 5000 UNITS/1 ML VIAL SQ SCH ×2 (08:20→21:27)
[2017-01-24] MEDS: ASPIRIN 81 MG TAB.CHEW PO SCH (08:20)
[2017-01-24] MEDS: PANTOPRAZOLE 40 MG TABLET.DR PO SCH (08:20)
[2017-01-24] MEDS: AMLODIPINE BESYLATE 10 MG TABLET PO SCH (08:21)
[2017-01-24] MEDS: FOLIC ACID 1 MG TABLET PO SCH (08:21)
[2017-01-24] MEDS: ALLOPURINOL 100 MG TABLET PO SCH (08:21)
[2017-01-24] MEDS: NIFEdipine XL 60 MG TAB PO SCH ×2 (08:21→17:00)
[2017-01-24] MEDS: FUROSEMIDE 40 MG TABLET PO SCH ×2 (08:24→17:20)
[2017-01-24] MEDS: PRAMIPEXOLE DI-HCL 0.25 MG TABLET PO SCH (17:20)
--- NOTE | 2017-01-24 18:20 | NUR ---
RN CLOSING NOTES NO SIGNIFICANT CHANGES THROUGHOUT THE SHIFT. NO SOB OR DISTRESS NOTED AT THIS TIME. PATIENT DENIES PAIN. BED IN A LOW POSITION, CALL LIGHT WITHIN PATIENT REACH. WILL ENDORSE FOR LARISSA.
--- NOTE | 2017-01-24 19:00 | NUR ---
MS RN OPENING NOTES PT IN BED RESTING, PT A/O X 4, IN STABLE CONDITION. ON 1L NC 02 SAT AT 98% BREATHING EVEN AND UNLABORED, SAFETY MEASURES IN PLACE, BED LOCKED AND IN LOWEST POSITION, CALL LIGHT IN REACH. WILL CONTINUE TO MONITOR.
[2017-01-24 20:00] VITALS: BP 116/47
[2017-01-24] MEDS: SIMVASTATIN 20 MG TABLET PO SCH (21:25)
[2017-01-25] MEDS: NITROGLYCERIN PACKET 1 GM PACKET TOP SCH ×3 (05:00→21:46)
[2017-01-25] MEDS: CEFTRIAXONE 1 G in IV D5W 50 ML IV SCH (05:13)
[2017-01-25] MEDS: BLOOD SUGAR DIAGNOSTIC 1 EACH STRIP IN SCH ×4 (05:54→21:47)
[2017-01-25] MEDS: INSULIN REGULAR, HUMAN 100 UNIT/ML 3 ML VIAL SQ PRN ×3 (05:59→17:33)
--- NOTE | 2017-01-25 06:29 | NUR ---
MS RN CLOSING NOTES IN BED ASLEEP NOW BUT EASILY AWAKEN. STABLE CONDITION. ON ATB WITH NO A/R NOTED. HEAD OF BED ELEVATED FOR BETTER LUNG EXPANSION AND GOOD CIRCULATION, TOLERATING ROOM AIR 02 SAT 94% RESPIRATIONS EVEN AND UNLABORED, NOT IN RESPIRATORY DISTRESS, AFEBRILE, KEPT CLEAN AND DRY AND COMFORTABLE, NEEDS ATTENDED AND ANTICIPATED, NURSING CARE RENDERED. SAFETY SAFE HAZARD FREE ENVIRONMENT PROVIDED. CALL LIGHT WITHIN EASY TO REACH, ON LOW BED AT ALL TIMES TO ENSURE SAFETY, WILL ENDORSE TO THE NEXT SHIFT CONTINUE POC. Addendum: 01/25/17 at 0649 by JAMES TOVAR RN ASSISTED REPOSITION EVERY 2 HOURS WITH STENOCAPTIONER
--- NOTE | 2017-01-25 07:20 | NUR ---
MS RN OPENING NOTES RECEIVED PT ASLEEP IN BED, EASILY AWAKENS. A/O X4, NO C/O PAIN OR DISCOMFORTS VOICED AT THIS TIME. ON 02 VIA N/C AT 1LPM IN PROGRESS, BREATHING EVEN WITH NO SOB NOTED. CORY SHUNT IN PLACED AND IV ACCESS ON PIERCE INTACT AND PATENT. SAFETY MEASURES IN PLACED. BED LOCKED AND IN LOWEST POSITION, CALL LIGHT IN REACH. WILL CONTINUE TO MONITOR PT ACCORDINGLY.
[2017-01-25 08:00] VITALS: BP 130/60
[2017-01-25] MEDS: ALLOPURINOL 100 MG TABLET PO SCH (08:20)
[2017-01-25] MEDS: FUROSEMIDE 40 MG TABLET PO SCH ×2 (08:21→16:35)
[2017-01-25] MEDS: FOLIC ACID 1 MG TABLET PO SCH (08:21)
[2017-01-25] MEDS: HEPARIN SODIUM, PORCINE 5000 UNITS/1 ML VIAL SQ SCH (08:21)
[2017-01-25] MEDS: PANTOPRAZOLE 40 MG TABLET.DR PO SCH (08:21)
[2017-01-25] MEDS: NIFEdipine XL 60 MG TAB PO SCH ×2 (08:21→16:35)
[2017-01-25] MEDS: CALCIUM ACETATE 667 MG TABLET PO SCH ×3 (08:22→17:35)
[2017-01-25] MEDS: AMLODIPINE BESYLATE 10 MG TABLET PO SCH (08:22)
[2017-01-25] MEDS: ASPIRIN 81 MG TAB.CHEW PO SCH (08:22)
[2017-01-25] MEDS: MUPIROCIN OINT 2% 22 GM TUBE SCH ×2 (08:23→21:55)
[2017-01-25] MEDS: FLUTICASONE/VILANTEROL 1 EACH BLST.W.DEV IH SCH (08:23)
[2017-01-25 16:00] VITALS: BP 102/49
[2017-01-25] MEDS: Z GUARD REMEDY 2 OZ OINT TP PRN (17:34)
[2017-01-25] MEDS: PRAMIPEXOLE DI-HCL 0.25 MG TABLET PO SCH (17:35)
--- NOTE | 2017-01-25 18:39 | NUR ---
RN NOTES PT ON HEMODIALYSIS IN PROGRESS, PRE-HD V/S: BP140/48, P 68, R 18 AND T 97.8F, SP02 98%/ WILL CONTINUE TO MONITOR
--- NOTE | 2017-01-25 19:07 | NUR ---
MS RN CLOSING NOTES PT AWAKE IN BED WITH HEMODIALYSIS ONGOING. A/O X4, NO C/O PAIN DURING THE DAY DESPITE ASKING HIM SEVERAL TIMES. FAMILY AT BEDSIDE AT THIS TIME. ON 02 VIA N/C AT 1LPM IN PROGRESS, BREATHING EVEN WITH NO SOB NOTED. CORY SHUNT IN PLACED AND IV ACCESS ON PIERCE INTACT AND PATENT. ALL SAFETY MEASURES KEPT IN PLACED. BED LOCKED AND IN LOWEST POSITION, CALL LIGHT IN REACH. ALL NEEDS AND CARE PROVIDED WELL. WILL ENDORSED TO COTTON OPENER NURSE FOR LARISSA. .
--- NOTE | 2017-01-25 19:40 | NUR ---
MS/RN OPENING NOTES PT RECEIVED RESTING COMFORTABLY IN BED. HEMODIALYSIS ONGOING. BREATHING EVEN AND UNLABORED, NO APPARENT SIGNS OF DISTRESS NOTED. IN SEMI FOWLERS POSITION. ON 1L O2 VIA NC. DENIES SOB OR PAIN AT THIS TIME. CORY AV SHUNT NOTED. PIERCE IV SITE PATENT AND INTACT. BED IN LOW/LOCKED POSITION WITH CALL LIGHT IN REACH. SIDE RAILS UPX2. WILL CONTINUE TO MONITOR
[2017-01-25 20:00] VITALS: BP 131/59
[2017-01-25 20:35] VITALS: BP 131/59
[2017-01-25 21:30] VITALS: BP 121/67
[2017-01-25] MEDS: SIMVASTATIN 20 MG TABLET PO SCH (21:46)
[2017-01-26] MEDS: NITROGLYCERIN PACKET 1 GM PACKET TOP SCH ×2 (05:00→12:44)
--- NOTE | 2017-01-26 07:05 | NUR ---
MS/RN CLOSING NOTES PT AWAKE, RESTING COMFORTABLY IN BED. A/OX3. ON 1L O2 VIA NC. BREATHING EVEN AND UNLABORED. DENIES SOB OR PAIN. IV PIERCE PATENT AND INTACT CORY AV SHUNT WITH DRESSING C/D/I. PT HAD HD YESTERDAY WITH 1.5L OUT. TOLERATED WELL. BLOOD SUGAR THIS AM 144, ADMINISTERED 2 UNITS OF INSULIN ORDERED. MADE PT COMFORTABLE DURING SHIFT. BED IN LOW/LOCKED POSITION, CALL LIGHT IN REACH AND SIDE RAILS UPX3. WILL BED ALARM ON FOR SAFETY. ENDORSED TO AM SHIFT LARISSA.
[2017-01-26] MEDS: BLOOD SUGAR DIAGNOSTIC 1 EACH STRIP IN SCH ×2 (07:09→12:43)
[2017-01-26 07:10] LABS: CALCIUM, SERUM 8.9 mg/dL (8.5-10.1); CARBON DIOXIDE 34 mmol/L (21-32); CHLORIDE 96 mmol/L (98-107); CREATININE 3.9 mg/dL (0.6-1.3); GLUCOSE 133 mg/dL (74-106); POTASSIUM 4.8 mmol/L (3.5-5.1); SODIUM SERUM 137 mmol/L (136-145); UREA NITROGEN, BLOOD 34 mg/dL (7-18)
[2017-01-26] MEDS: INSULIN REGULAR, HUMAN 100 UNIT/ML 3 ML VIAL SQ PRN ×2 (07:15→12:48)
--- NOTE | 2017-01-26 07:31 | NUR ---
MS RN OPENING NOTES RECEIVED PATIENT IN BED AWAKE IN NO ACUTE SIGNS OF DISTRESS. A/O X3-4, VERBALLY RESPONSIVE, DENIES PAIN OR DISCOMFORTS AT THIS TIME. ON 02 VIA N/C AT 1LPM, BREATHING EVEN AND UNLABORED. CORY SHUNT IN PLACED WITH POSITIVE BRUIT AND THRILL. IV ACCESS ON PIERCE INTACT AND PATENT. SAFETY MEASURES IN PLACED. BED LOCKED AND IN LOWEST POSITION, CALL LIGHT IN REACH. WILL CONTINUE TO MONITOR PT ACCORDINGLY.
[2017-01-26 08:00] VITALS: BP 121/51
[2017-01-26] MEDS: ASPIRIN 81 MG TAB.CHEW PO SCH (08:13)
[2017-01-26] MEDS: PANTOPRAZOLE 40 MG TABLET.DR PO SCH (08:13)
[2017-01-26] MEDS: FUROSEMIDE 40 MG TABLET PO SCH (08:13)
[2017-01-26] MEDS: FOLIC ACID 1 MG TABLET PO SCH (08:13)
[2017-01-26] MEDS: AMLODIPINE BESYLATE 10 MG TABLET PO SCH (08:14)
[2017-01-26] MEDS: CALCIUM ACETATE 667 MG TABLET PO SCH ×2 (08:14→12:44)
[2017-01-26] MEDS: ALLOPURINOL 100 MG TABLET PO SCH (08:14)
[2017-01-26] MEDS: NIFEdipine XL 60 MG TAB PO SCH (08:15)
[2017-01-26] MEDS: MUPIROCIN OINT 2% 22 GM TUBE SCH (08:17)
[2017-01-26] MEDS: FLUTICASONE/VILANTEROL 1 EACH BLST.W.DEV IH SCH (08:18)
[2017-01-26] MEDS ORDERED: FURO40TA5 PO (10:32)
[2017-01-26] MEDS ORDERED: ALLO100T25 PO (10:32)
[2017-01-26] MEDS ORDERED: NIFE60TA69 PO (10:32)
[2017-01-26] MEDS: Z GUARD REMEDY 2 OZ OINT TP PRN (12:48)
--- NOTE | 2017-01-26 15:38 | NUR ---
RN DISCHARGED NOTES PT DISCHARGE HOME IN STABLE CONDITION. LEFT UNIT AT 1530H VIA WHEELCHAIR ACCOMPANIED BY . ALERT AND ORIENTED X3-4 IN NO ACUTE SIGNS OF DISTRESS DURING DISCHARGE. V/S TAKEN AND RECORDED. PHOTOS OF SKIN TAKEN AND FILED ON CHART. BELONGING LIST CHECKED, COUNTED AND SIGNED FORM. HEALTH TEACHINGS GIVEN TO PT AND FAMILY AND THEY VERBALIZED UNDERSTANDING. MD AND NURSE MANAGER AUTO AWARE OF DISCHARGE.
[2017-01-26 16:00] VITALS: BP 126/54
== END 2017-01-26 15:35 | disposition home health service (06) | DRG 291 ==
LOC: ER 00:27 → TELE-TD 02:04 → TELE1 15:50 → MEDSG1 01-19 08:09 → MEDSG2 01-24 05:31
PROVIDERS: ADMIT Internal Medicine; ATTEND Internal Medicine
PROC: 5A1D70Z Performance of Urinary Filtration, Intermittent, Less than 6 Hours Per Day (ICD-10-PCS; principal; 2017-01-18)
DX: I13.2 Hypertensive heart and chronic kidney disease with heart failure and with stage 5 chronic kidney disease, or end stage renal disease (principal); J96.01 Acute respiratory failure with hypoxia; E87.2 Acidosis; E44.0 Moderate protein-calorie malnutrition; E11.22 Type 2 diabetes mellitus with diabetic chronic kidney disease; E66.01 Morbid (severe) obesity due to excess calories; I27.20 Pulmonary hypertension, unspecified; N18.6 End stage renal disease; I50.31 Acute diastolic (congestive) heart failure; E83.9 Disorder of mineral metabolism, unspecified; D63.8 Anemia in other chronic diseases classified elsewhere; Z99.2 Dependence on renal dialysis; E78.5 Hyperlipidemia, unspecified; E87.5 Hyperkalemia; I25.10 Atherosclerotic heart disease of native coronary artery without angina pectoris; K21.9 Gastro-esophageal reflux disease without esophagitis; Z87.891 Personal history of nicotine dependence; J06.9 Acute upper respiratory infection, unspecified; I35.0 Nonrheumatic aortic (valve) stenosis; Z68.22 Body mass index [BMI] 22.0-22.9, adult; J44.9 Chronic obstructive pulmonary disease, unspecified
CPT/HCPCS: 36415; 36600; 71010-TC; 76770-TC; 78582; 80048-TC; 80061-TC; 80074; 80076-TC; 82010-TC; 82570-TC; 82803-TC; 82962-TC; 83605-TC; 83735-TC; 83880; 84100-TC; 84484-TC; 85025-TC; 85378-TC; 86706; 86803; 87040-TC; 87081-TC; 87340; 87400; 90935-TC; 93307-TC; A4606; A9540; A9567; J0696; J1644; J1650; J1815; J1940; J1956; J2930; J7030; J7040; J7060; Q0164; Q2036